=== PATIENT | male | born 1970 | race Caucasian/White ===

== ENCOUNTER → 2016-06-02 | Outpatient (CLI) | payer BC ==
[~2016-06-02] MED LIST: CEPH500C2 PO; CHOL100010 PO; LAMO100T16 PO; LITH1TAB10 PO; QUET1TAB34 PO; TYL325X PO
[2016-06-02 12:08] LABS: BASO % 0.2 %; BASO ABS # 0.03 K/uL (0-0.2); COMPLETE YES; EOS % 0.5 %; HEMATOCRIT 41.4 % (42-52); IG% 0.3 %; LYMPH % 13.5 %; LYMPH ABS # 1.91 K/uL (1.2-3.4); MEAN CELL VOLUME 85.2 fL (80-100); MEAN CORPUSCULAR HEMOGLOBIN 29.8 pg (25-34); MEAN PLATELET VOLUME 10.2 fL (7.4-10.4); MONO % 4.1 %; NEUT % 81.4 %; PLATELET COUNT 282 K/uL (130-400); RED BLOOD COUNT 4.86 M/uL (4.7-6.1); WHITE BLOOD COUNT 14.18 K/uL (4.8-10.8)
[2016-06-02 12:34] LABS: ALB/GLOB RATIO 1.4 (0.9-2); ALKALINE PHOSPHATASE 90 U/L (45-117); ALT/SGPT 35 U/L (12-78); AST/SGOT 14 U/L (15-37); BLOOD UREA NITROGEN 11 mg/dl (7-18); BUN/CREATININE RATIO 9.4 (10-20); CALCIUM 10.3 mg/dl (8.5-10.1); CARBON DIOXIDE 23 mmol/L (21-32); CHLORIDE 107 mmol/L (98-107); GLUCOSE 96 mg/dl (70-99); POTASSIUM 4.4 mmol/L (3.5-5.1); SODIUM 140 mmol/L (136-145)
[2016-06-02 13:53] LABS: LYME DISEASE AB IGM NEG (NEG)
[2016-06-02 13:55] LABS: LYME DISEASE AB IGG NEG (NEG)
== END | disposition home or self-care (01) ==
LOC: C.LAB1850 10:50
PROVIDERS: ATTEND Nurse Practitioner
DX: M25.561 Pain in right knee (principal); M25.461 Effusion, right knee; R50.9 Fever, unspecified

== ENCOUNTER → 2016-06-05 | Outpatient (CLI) | payer BC, OTHER ==
[~2016-06-05] MED LIST changes: +GADAVIST IV PRN
--- NOTE | 2016-06-05 11:40 | DIAGNOSTIC IMAGING REPORT ---
MRI right knee RIGHT LOWER EXTREMITY JOINT COM CLINICAL HISTORY: R KNEE PAIN AND SWELLING; FEVER; KNEE INSTABILITY Right pain TECHNIQUE: MRI multi axial acquisition COMPARISON STUDY: None FINDINGS: Signal characteristics the osseous structures are unremarkable throughout. There are findings of infrapatellar tendinopathy primarily anterior to the level of the tibial tubercles. There is associated reactive edematous change of the infrapatellar fat-pad.. Signal characteristics of all remaining osseous structures are unremarkable. Cruciate ligaments are intact. Collateral ligament are intact. Medial and lateral patellar retinaculum is intact. Slight truncation mid medial meniscal apex. Lateral meniscus is unremarkable. IMPRESSION: 1. Infrapatellar tendon tendinopathy 2. Reactive edematous change of the infrapatellar fat pad. 3. All remaining ligamentous and tendinous structures are intact. 4. Minimal apical truncation central medial meniscus. Electronically signed by: Jeremias Newton M.D. 06/05/2016 11:38 AM Dictated Date/Time: 06/05/2016 11:11 AM
== END | disposition home or self-care (01) ==
LOC: C.MRI 09:23
PROVIDERS: ATTEND Nurse Practitioner
DX: M25.561 Pain in right knee (principal); R60.0 Localized edema; R50.9 Fever, unspecified; M25.361 Other instability, right knee; M76.51 Patellar tendinitis, right knee

== ENCOUNTER → 2016-06-21 | Outpatient (CLI) | payer BC, OTHER ==
[~2016-06-21] MED LIST changes: -GADAVIST IV PRN
[2016-06-21 11:21] LABS: BLOOD UREA NITROGEN 11 mg/dl (7-18); BUN/CREATININE RATIO 11.2 (10-20); CALCIUM 9.6 mg/dl (8.5-10.1); CARBON DIOXIDE 27 mmol/L (21-32); CHLORIDE 107 mmol/L (98-107); CHOLESTEROL 224 mg/dl (0-200); GLUCOSE 92 mg/dl (70-99); GLUCOSE,FASTING 92 mg/dl (70-99); POTASSIUM 4.1 mmol/L (3.5-5.1); SODIUM 142 mmol/L (136-145)
[2016-06-21 11:31] LABS: CHOLESTEROL/HDL RATIO 7.7; HDL CHOLESTEROL 29 mg/dl; TRIGLYCERIDES 489 mg/dl (0-150)
== END ==
LOC: C.LAB 10:21
PROVIDERS: ATTEND Psychiatry & Neurology Psychiatry
DX: F31.81 Bipolar II disorder (principal)

== ENCOUNTER → 2017-01-23 | Outpatient (CLI) | payer BC, OTHER ==
[2017-01-23 10:43] LABS: BASO ABS # 0.07 K/uL (0-0.2); COMPLETE YES; EOS % 3.6 %; HEMATOCRIT 42.1 % (42-52); IG% 0.3 %; LYMPH % 29.9 %; MEAN CELL VOLUME 85.2 fL (80-100); MEAN CORPUSCULAR HEMOGLOBIN 29.8 pg (25-34); MEAN CORPUSCULAR HGB CONC 34.9 g/dl (32-36); MEAN PLATELET VOLUME 9.4 fL (7.4-10.4); MONO % 5.8 %; NEUT % 59.4 %; PLATELET COUNT 246 K/uL (130-400); RED BLOOD COUNT 4.94 M/uL (4.7-6.1); WHITE BLOOD COUNT 6.69 K/uL (4.8-10.8)
[2017-01-23 12:33] LABS: ALB/GLOB RATIO 1.3 (0.9-2); ALKALINE PHOSPHATASE 95 U/L (45-117); ALT/SGPT 34 U/L (12-78); AST/SGOT 14 U/L (15-37); BLOOD UREA NITROGEN 15 mg/dl (7-18); BUN/CREATININE RATIO 13.8 (10-20); CALCIUM 9.6 mg/dl (8.5-10.1); CARBON DIOXIDE 24 mmol/L (21-32); CHLORIDE 109 mmol/L (98-107); GLUCOSE 95 mg/dl (70-99); POTASSIUM 4.3 mmol/L (3.5-5.1); SODIUM 141 mmol/L (136-145)
[2017-01-23 12:44] LABS: CHOLESTEROL 192 mg/dl (0-200); CHOLESTEROL/HDL RATIO 6.9; HDL CHOLESTEROL 28 mg/dl; LDL CHOLESTEROL CALCULATED 96 mg/dl; TRIGLYCERIDES 341 mg/dl (0-150); VERY LOW DENSITY LIPOPROT CALC 68 mg/dl
== END | disposition home or self-care (01) ==
LOC: C.LAB1850 09:31
PROVIDERS: ATTEND Psychiatry & Neurology Psychiatry
DX: F31.9 Bipolar disorder, unspecified (principal)

== ENCOUNTER → 2017-03-13 | Outpatient (CLI) | payer BC, OTHER | END | disposition home or self-care (01) | LOC: C.LAB1850 08:00 | PROVIDERS: ATTEND Psychiatry & Neurology Psychiatry | DX: F31.9 Bipolar disorder, unspecified (principal) ==

== ENCOUNTER 2021-04-03 18:07 | Inpatient (IN) ==
--- NOTE | 2021-04-03 18:26 | Emergency Department Note ---
Impression & Plan Bipolar 1 disorder Admission ED Provider Note HPI: The patient is a 50-year-old male who presents the emergency department as a 302. Patient reportedly made a suicidal threat earlier today to his . Patient denies this. He states he has been very agitated all day because he just found out his is having an affair. His speech is somewhat pressured on arrival but he is cooperative. He seems slightly manic. Patient denies that he has threatened to kill himself, denies any suicidal or homicidal ideations. He is cooperative on arrival here to the ED. He denies any alcohol use, states he does smoke marijuana. ROS: -Psychiatric: Agitation, ifeanyi, history of bipolar disorder, presents as 302 *10 point review systems was conducted and is otherwise negative unless stated above *Outpatient medications and allergy history reviewed PE: General: Alert, NAD HEENT: Normocephalic, atraumatic, trachea midline Eyes: Extraocular eye movement is intact, no scleral erythema Pulmonary: Clear to auscultation bilaterally, no wheezing Cardio: Regular rate and rhythm GI: Abdomen is soft, nontender : No suprapubic tenderness MSK: No evidence of trauma or malformation of the extremities, no edema Skin: No evidence of rash Neuro: Alert, no focal deficits Psychiatric: Cooperative, pressured speech, not aggressive Medical Decision Making: Patient presented to the emergency department today as a 302 with reported suicidal threat to want to hang himself. He tells me has been very agitated all day because he found out that his was having an affair. He does seem somewhat agitated and mildly manic on arrival but he is cooperative on my ex amination. Denies any suicidal or homicidal thoughts. Patient was medically cleared, evaluated by the psychiatric manager case. At this time the patient states that he is seeking voluntary inpatient care and I do believe he would benefit from this given his agitation and ifeanyi in the setting of a recent social stressor. 302 will be held and the patient will sign a 201. Patient was in agreement to the above plan he was admitted in stable condition to 3 S. Diagnosis: 1. Bipolar disorder 2. Anxiety/depression 3. Agitation in the setting of a psychosocial stressor Disposition: Admit to psychiatry under 201 Jeremias Meyer, Emergency Medicine Past Med/Surg History Medical History HTN (hypertension) Strain of left patellar tendon Surgical History H/O vasectomy Social History Smoking Status: Never smoker Feels Safe at Home: Yes Allergies Allergies Allergy/AdvReac Type Severity Reaction Status Date / Time Penicillins Allergy Severe RASH Verified 10/31/20 11:52 Home Meds Home Medications Medication Instructions Recorded Confirmed CHOLECALCIFEROL (Vitamin D) 1,000 inter.unit PO HS #0 02/10/11 10/31/20 [place] Carbonate Ext Rel 1,200 mg PO HS #0 12/28/11 10/31/20 (Lithobid Ext Rel) [place] Carbonate Ext Rel 300 mg PO QAM #0 12/28/11 10/31/20 (Lithobid Ext Rel) Lamotrigine (Lamictal) 300 mg PO HS #0 tab 09/06/15 10/31/20 Quetiapine Fumarate (Seroquel) 200 mg PO HS #0 tab 11/26/15 10/31/20 Previous Rx's Medication Instructions Recorded Acetaminophen (Tylenol) 325 - 650 mg PO Q8H #30 11/27/15 Cephalexin Monohydrate (KEFLEX) 500 mg PO QID 7 Days #28 cap 11/27/15 Results & Data (ED) Vital Signs Vital Signs - 24 hr 04/03/21 18:23 04/03/21 18:27 Temperature 37.5 C Temperature Source Oral Pulse Rate 88 Pulse Rate [Left Radial] 88 Pulse Rhythm Regular Pulse Rhythm [Left Radial] Regular Pulse Strength Normal Pulse Strength [Left Radial] Normal Respiratory Rate 14 14 Respiratory Effort / Characteristics Non-Labored Respiratory Depth Normal Normal Respiratory Pattern Regular Blood Pressure 168/107 H Blood Pressure [Left Arm] 168/107 H Blood Pressure Mean 127 Blood Pressure Mean [Left Arm] 127 Blood Pressure Position Lying Blood Pressure Position [Left Arm] Lying Pulse Oximetry 98 98 Oxygen Delivery Method Room Air Room Air Sepsis Recent Fever Within 48 Hours No Sepsis New/Unexplained Change in Mental Status No Sepsis Action Taken by Nursing No Action Required Laboratory Data Result diagrams: 04/03/21 18:52 04/03/21 18:52 Lab Results 04/03/21 04/03/21 04/03/21 Range/Units 18:30 18:30 18:52 WBC 13.44 H (4.8-10.8) K/uL RBC 4.67 L (4.7-6.1) M/uL Hgb 14.5 (14.0-18.0) g/dL Hct 42.5 (42-52) % MCV 91.0 (80-100) fL MCH 31.0 (25-34) pg MCHC 34.1 (32-36) g/dL RDW Std Deviation 42.5 (36.4-46.3) fL RDW Coeff of Tavon 12.8 (11.5-14.5) % Plt Count 311 (130-400) K/uL MPV 9.0 (7.4-10.4) fL Immature Gran % (Auto) 0.1 % Neut % (Auto) 71.8 % Lymph % (Auto) 20.4 % [place] % (Auto) 5.7 % Eos % (Auto) 1.6 % Baso % (Auto) 0.4 % Neut # (Auto) 9.66 H (1.4-6.5) K/uL Lymph # (Auto) 2.74 (1.2-3.4) K/uL Liberty # (Auto) 0.76 H (0.11-0.59) K/uL Eos # (Auto) 0.21 (0-0.5) K/uL Baso # (Auto) 0.05 (0-0.2) K/uL Immature Gran # (Auto) 0.02 (0.00-0.02) K/uL Sodium (136-145) mmol/L Potassium (3.5-5.1) mmol/L Chloride (98-107) mmol/L Carbon Dioxide (21-32) mmol/L Anion Gap (3-11) BUN (7-18) mg/dl Creatinine (0.6-1.4) mg/dl Est Cr Clr Drug Dosing Est GFR ( Amer) ml/min Est GFR (Non-Af Amer) ml/min BUN/Creatinine Ratio (10-20) Glucose (70-99) mg/dl Calcium (8.5-10.1) mg/dl Total Bilirubin (0.2-1) mg/dl AST (15-37) U/L ALT (12-78) Alkaline Phosphatase (45-117) U/L Total Protein (6.4-8.2) gm/dl Albumin (3.4-5.0) gm/dl Globulin (2.5-4.0) gm/dl Albumin/Globulin Ratio (0.9-2) TSH (0.300-4.500) uIu/ml Urine Color Yellow Urine Appearance Clear (Clear) Urine pH 5.5 (4.5-7.5) Ur Specific [place] 1.008 (1.000-1.030) Urine Protein Negative (Negative) Urine Glucose (UA) Negative (Negative) Urine Ketones Negative (Negative) Urine Blood Negative (Negative) Urine Nitrite Negative (Negative) Urine Bilirubin Negative (Negative) Urine Urobilinogen Negative (Negative) Ur Leukocyte Esterase Trace H (Negative) Urine WBC (Auto) 1-5 (0-5) /hpf Urine RBC (Auto) 0-4 (0-4) /hpf U Hyaline Cast (Auto) 1-5 (0-5) /lpf U Epithel Cells (Auto) 0-5 (0-5) /lpf Urine Bacteria (Auto) Negative (Negative) Salicylates (2.8-20) mg/dl Urine Opiates Screen Neg (Neg) Ur Methadone, Qual Neg (Neg) Acetaminophen (10-30) ug/ml Urine Barbiturates Neg (Neg) Ur Phencyclidine (PCP) Neg (Neg) U Amphetamin/Meth Scrn Neg (Neg) MDMA (Ecstasy) Screen Pos H (Neg) U Benzodiazepines Scrn Neg (Neg) Ur Cocaine Metabolite Neg (Neg) U Marijuana (THC) Screen Neg (Neg) Ethyl Alcohol mg/dL (0-3) mg/dl 04/03/21 04/03/21 04/03/21 Range/Units 18:52 18:52 18:52 WBC (4.8-10.8) K/uL RBC (4.7-6.1) M/uL Hgb (14.0-18.0) g/dL Hct (42-52) % MCV (80-100) fL MCH (25-34) pg MCHC (32-36) g/dL RDW Std Deviation (36.4-46.3) fL RDW Coeff of Tavon (11.5-14.5) % Plt Count (130-400) K/uL MPV (7.4-10.4) fL Immature Gran % (Auto) % Neut % (Auto) % Lymph % (Auto) % Liberty % (Auto) % Eos % (Auto) % Baso % (Auto) % Neut # (Auto) (1.4-6.5) K/uL Lymph # (Auto) (1.2-3.4) K/uL Liberty # (Auto) (0.11-0.59) K/uL Eos # (Auto) (0-0.5) K/uL Baso # (Auto) (0-0.2) K/uL Immature Gran # (Auto) (0.00-0.02) K/uL Sodium 137 (136-145) mmol/L Potassium 3.6 (3.5-5.1) mmol/L Chloride 107 (98-107) mmol/L Carbon Dioxide 23 (21-32) mmol/L Anion Gap 7.0 (3-11) BUN 11 (7-18) mg/dl Creatinine 1.04 (0.6-1.4) mg/dl Est Cr Clr Drug Dosing Not Reportable Est GFR ( Amer) 96.6 ml/min Est GFR (Non-Af Amer) 83.3 ml/min BUN/Creatinine Ratio 10.8 (10-20) Glucose 90 (70-99) mg/dl Calcium 9.8 (8.5-10.1) mg/dl Total Bilirubin 0.7 (0.2-1) mg/dl AST 16 (15-37) U/L ALT 28 (12-78) Alkaline Phosphatase 67 (45-117) U/L Total Protein 7.6 (6.4-8.2) gm/dl Albumin 4.1 (3.4-5.0) gm/dl Globulin 3.5 (2.5-4.0) gm/dl Albumin/Globulin Ratio 1.2 (0.9-2) TSH 3.330 (0.300-4.500) uIu/ml Urine Color Urine Appearance (Clear) Urine pH (4.5-7.5) Ur Specific [place] (1.000-1.030) Urine Protein (Negative) Urine Glucose (UA) (Negative) Urine Ketones (Negative) Urine Blood (Negative) Urine Nitrite (Negative) Urine Bilirubin (Negative) Urine Urobilinogen (Negative) Ur Leukocyte Esterase (Negative) Urine WBC (Auto) (0-5) /hpf Urine RBC (Auto) (0-4) /hpf U Hyaline Cast (Auto) (0-5) /lpf U Epithel Cells (Auto) (0-5) /lpf Urine Bacteria (Auto) (Negative) Salicylates 2.5 L (2.8-20) mg/dl Urine Opiates Screen (Neg) Ur Methadone, Qual (Neg) Acetaminophen 4 L (10-30) ug/ml Urine Barbiturates (Neg) Ur Phencyclidine (PCP) (Neg) U Amphetamin/Meth Scrn (Neg) MDMA (Ecstasy) Screen (Neg) U Benzodiazepines Scrn (Neg) Ur Cocaine Metabolite (Neg) U Marijuana (THC) Screen (Neg) Ethyl Alcohol mg/dL < 3.0 (0-3) mg/dl Discharge Plan Visit Data Chief Complaint: Mental Health Evaluation ED Provider: Jeremias Meyer Discharge Problem: Bipolar 1 disorder Forms Stand Alone Forms: [facility], Suicide Prevention Resources Prescriptions Prescriptions: No Action CHOLECALCIFEROL (Vitamin D) 1,000 INTER.UNIT tablet 1,000 inter.unit PO HS Qty: 0 RF: 0 [place] Carbonate Ext Rel (Lithobid Ext Rel) 300 MG [id number] 1,200 mg PO HS Qty: 0 RF: 0 [place] Carbonate Ext Rel (Lithobid Ext Rel) 300 MG [id number] 300 mg PO QAM Qty: 0 RF: 0 Lamotrigine (Lamictal) 100 MG tablet 300 mg PO HS Qty: 0 RF: 0 Quetiapine Fumarate (Seroquel) 100 MG tablet 200 mg PO HS Qty: 0 RF: 0 Cephalexin Monohydrate (KEFLEX) 500 MG capsule 500 mg PO QID 7 Days Qty: 28 RF: 1 Acetaminophen (Tylenol) 325 MG tablet 325 - 650 mg PO Q8H Qty: 30 RF: 0 Referrals Referrals: Fernando Deal DO [Primary Care Provider] -
[2021-04-03 19:05] LABS: Amphetamines+Metham, Urine Neg (Neg); Barbiturates, Urine Neg (Neg); Benzodiazepine, Urine Neg (Neg); Cocaine, Urine Neg (Neg); MDMA (Ecstacy), Urine Pos (Neg); Methadone, Urine Neg (Neg); Opiate, Urine Neg (Neg); Phencyclidine, Urine Neg (Neg)
[2021-04-03 19:07] LABS: Basophils # (auto) 0.05 K/uL (0-0.2); Basophils % (auto) 0.4 %; Eosinophils # (auto) 0.21 K/uL (0-0.5); Eosinophils % (auto) 1.6 %; Hematocrit (blood only) 42.5 % (42-52); Hemoglobin 14.5 g/dL (14.0-18.0); Immature Granulocytes # (auto) 0.02 K/uL (0.00-0.02); Immature Granulocytes % (auto) 0.1 %; Lymphocytes # (auto) 2.74 K/uL (1.2-3.4); Lymphocytes % (auto) 20.4 %; Mean Corpuscular Hgb Conc 34.1 g/dL (32-36); Monocytes # (auto) 0.76 K/uL (0.11-0.59); Monocytes % (auto) 5.7 %; Neutrophils # (auto) 9.66 K/uL (1.4-6.5); Neutrophils % (auto) 71.8 %; Platelet Count 311 K/uL (130-400); RDW Coefficient of Variation 12.8 % (11.5-14.5); RDW Standard Deviation 42.5 fL (36.4-46.3); Red Blood Count 4.67 M/uL (4.7-6.1); White Blood Count 13.44 K/uL (4.8-10.8)
[2021-04-03 19:25] LABS: Albumin Level 4.1 gm/dl (3.4-5.0); BUN Creatinine Ratio 10.8 (10-20); Blood Urea Nitrogen 11 mg/dl (7-18); Calcium 9.8 mg/dl (8.5-10.1); Carbon Dioxide 23 mmol/L (21-32); Chloride 107 mmol/L (98-107); Est GFR (African American) 96.6 ml/min; Est GFR (Non-African American) 83.3 ml/min; Glucose 90 mg/dl (70-99); Potassium 3.6 mmol/L (3.5-5.1); Salicylate 2.5 mg/dl (2.8-20); Sodium 137 mmol/L (136-145)
[2021-04-03 19:35] LABS: Alanine Aminotransferase 28 (12-78); Albumin Globulin Ratio 1.2 (0.9-2); Alkaline Phosphatase 67 U/L (45-117); Aspartate Aminotransferase 16 U/L (15-37); Bilirubin,Total 0.7 mg/dl (0.2-1); Globulin 3.5 gm/dl (2.5-4.0); Total Protein 7.6 gm/dl (6.4-8.2)
[2021-04-03 19:44] LABS: Appearance Urine Clear (Clear); Bacteria Urine Automated Negative (Negative); Bilirubin Urine Negative (Negative); Blood Urine Negative (Negative); Color Urine Yellow; Epithelial Cell Urine Auto 0-5 /lpf (0-5); Glucose Urine UA Negative (Negative); Ketones Urine Negative (Negative); Leukocyte Esterase Urine Trace (Negative); Nitrite Urine Negative (Negative); Protein Urine Negative (Negative); RBC Urine Automated 0-4 /hpf (0-4); Specific Gravity Urine 1.008 (1.000-1.030); Urobilinogen Urine Negative (Negative); pH Urine 5.5 (4.5-7.5)
--- NOTE | 2021-04-04 00:06 | Emergency Department Note ---
ED Visit Note ED Physician Sign Out Note: 50 yr old male with history of bipolar who arrives following finding out his is cheating on him. Wishing hospitalization for anxiety/depression with ifeanyi. Medically cleared by Dr Meyer who signed patient out to me pending placement Patient was shortly thereafter accepted to [facility]. for further manage ment. Santo Aguilar MD
[2021-04-04] MEDS ORDERED: ACETAMINOPHEN 325 MG TAB PO PRN (00:40)
[2021-04-04] MEDS ORDERED: MAGNESIUM HYDROXIDE SUSP 30 ML UDC PO PRN (00:40)
[2021-04-04] MEDS ORDERED: SODIUM CHLORIDE 0.65% NA SOLN 45 ML (OCEAN) PRN (00:40)
[2021-04-04] MEDS ORDERED: ALUMINUM/MAGNESIUM SUSP 30 ML UDC PO PRN (00:40)
[2021-04-04] MEDS ORDERED: BISMUTH SUBSALICYLATE LIQD 236 ML PO PRN (00:40)
[2021-04-04] MEDS: hydrOXYzine HCl 25 MG TAB PO PRN (00:56)
[2021-04-04] MEDS: buPROPion SR 100 MG TABCR PO SCH (10:39)
[2021-04-04] MEDS: LITHIUM CARBONATE SLOW REL 300 MG TAB PO SCH ×2 (10:39→20:35)
[2021-04-04] MEDS: lamoTRIgine 25 MG TAB PO SCH (10:39)
[2021-04-04] MEDS: lisinopril 10 MG TAB PO SCH (10:39)
--- NOTE | 2021-04-04 13:01 | History & Physical ---
Date of Service April 04, 2021 Impression / Recommendations Impression 50 yo male presenting for 3rd inpatient hospitalization irritably depressed with beliefs that is cheating s/p suicide attempt by hanging 3 weeks ago with ongoing mixed picture and poor sleep. He is at significant risk of suicide, particularly as home alone and off work over the holiday and was admitted to on a voluntary basis for safety. (1) Bipolar 1 disorder: The patient was admitted to the [facility]) on q15 min checks (behavioral with suicide precautions) for safety. The patient will participate in group, recreational, and milieu therapies and will be offered additional individual and family sessions as clinically appropriate. Risks/benefits/alternatives were reviewed re: antipsychotics for mood and/or psychosis. Discussion included but was not limited to metabolic side effects, risks of TD and suicidal thoughts. There were no abnormal motor movements at baseline. Fasting glucose and lipid panel were reviewed from earlier this month. Patient is also aware of risk of rash with Lamictal. He denies being on a higher dose of Wellbutrin but will focus on targetting irritability and paranoia first with increase in Zyprexa to 10 mg as planned by outpatient psychiatrist. Will hold on lithium level as he missed at least 1 dose. Pharmacy expressed concerns about lisinopril increasing risk of lithium toxicity. He has no evidence of toxicity on exam. Ordering Lithobid here so gets tabs and not caps. Risk Factors Assessment Do You Have Access To A Gun?: No Protective Factors Assessment Employed: Yes ([employer]) Psychiatric History Identifying Data RAJ ZUÑIGA is a 50-year-old M who currently lives in [place], has a history of 2 prior inpatient hospitalizations at [facility], and was admitted on 04/04/21 00:03 on a 201 voluntary commitment for recent suicide attempt and ongoing irritability. He was initially brought to the ED by police on a 302 warrant. Chief Complaint "I haven't been sleeping and I know she's messing around on me", referring to his 's cheating History of Present Illness The patient reports marital distress for the past few months, culminated in him attempting suicide by hanging 3 weeks ago. There have been mixed reports whether this was a gesture of upset for 's cheating vs. intent to . It was significant enough attempt that he became light headed and aborted the attempt. He did process with his psychiatrist and was referred to start therapy. He is unsure of recent medication changes other than Zyprexa was increased at yesterday's appointment to 10 mg and he hadn't picked that up at the pharmacy yet. He is currently on holiday break from his work at [employer] and states that his and child are visiting her family out of state. He was triggered yesterday as she reportedly asked him not to come for Carlene and encouraged hospitalization "because she's messing around" (angry tone). He states that he hasn't been eating or sleeping well. He denies that he was suicidal yesterday, "I'm more angry than anything" and states that he was agreeable to come as his psychiatrist recommended it. The patient denies increased goal directed activity, distractibility but endorses irritability. It's unclear how impulsive the prior attempt was. Dr. Mendez was contacted for coordination of care and to confirm medications and states that patient has been more irritable with paranoia, more of a manic or mixed presentation and all are concerned about his safety given recent attempt. Past Psychiatric History Current Psychiatric Diagnosis: bipolar 1 disorder Outpatient Services: [facility], also recently started therapy (individual and couples) with [facility]. Previous Psych Admissions: [facility] 2011 and 2007. Do You Have Access To A Gun?: No Describe Attempts in the Past: attempted to hang self 3 weeks ago - stopped short of losing conscious Past Medication Trials: has been on lithium and lamictal for some time, Zyprexa recently added to Abilify. Allergies Allergy/AdvReac Type Severity Reaction Status Date / Time Penicillins Allergy Severe RASH Verified 10/31/20 11:52 Home Medications Medication Instructions Recorded Confirmed Type aripiprazole 5 mg tablet 5 mg PO DAILY 04/04/21 04/04/21 History bupropion HCl 100 mg tablet,12 hr 100 mg PO DAILY 04/04/21 04/04/21 History sustained-release clonazepam 0.5 mg tablet 0.5 mg PO BID 04/04/21 04/04/21 History ergocalciferol (vitamin D2) 1,250 50,000 unit PO WK 04/04/21 04/04/21 History mcg (50,000 unit) capsule lamotrigine 25 mg tablet 25 mg PO DAILY 04/04/21 04/04/21 History lamotrigine 25 mg tablet 100 mg PO HS 04/04/21 04/04/21 History lisinopril 10 mg tablet 10 mg PO DAILY 04/04/21 04/04/21 History lithium carbonate 300 mg tablet 300 mg PO DAILY 04/04/21 04/04/21 History lithium carbonate 300 mg tablet 600 mg PO HS 04/04/21 04/04/21 History olanzapine 10 mg tablet 10 mg PO DAILY 04/04/21 04/04/21 History Family History Family History of: None Alcohol History Hx of Alcohol Use Over the Past 12 Months: No AUDIT Total Score: 2 Smoking Use Have You Smoked or Used Tobacco Products in the Last 30 Days: Yes tobacco type: cigarettes Smoking Status: Current every day smoker Smoking packs per day: 0.5 Substance History Hx of Prescription Med Misuse Over the Past 12 Months: No Hx of Over the Counter Med Misuse Over the Past 12 Months: No Hx of Inhalent Misuse Over the Past 12 Months: No Hx of Organic Substance Use Over the Past 12 Months: No Hx of Illegal Substances/Street Drug Use Over Past 12 Months: No Problems as a Result of Past Substance Use: None Identified Personal History Living Arrangements: Home Highest Grade Completed: College 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[employer], 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) Marital Status: (2nd marriage, have been a couple for 14 years, for 10 years) Number Of Children: 3 (21 yo, 16 yo, and 7 yo) Beliefs That Will Affect Care: None Current Legal Problems: No Hx Traumatic Life Events: No Patient History Medical History HTN (hypertension) Strain of left patellar tendon Surgical History H/O vasectomy Social History Smoking Status: Current every day smoker Preferred Language: Romansh Communication Ability: Effective Scale Reclamation Tender Required: No Beliefs That Will Affect Care: None Feels Safe at Home: Yes Assistive Devices: Glasses Review of Systems Review of Systems: All systems reviewed & are unremarkable except as noted in HPI & below Physical Exam Psychiatric: Orientation: alert and oriented x 3 Apperance: appropriately dressed and appropriately groomed Eye Contact: good eye contact Motor Behavior: no abnormal motor movements Speech: normal rate/rhythm/volume of speech Affect: + depressed affect Mood: + depressed mood and + irritable mood Thought Process: goal directed thought process Suicidal Thoughts: denies suicidal thoughts Homicidal Thoughts: denies homicidal thoughts Hallucinations: no auditory hallucinations and no visual hallucinations Cognition: attention grossly intact and language grossly intact Estimated Intelligence: consistent with education level Insight: + limited insight Judgement: + limited judgement Vital Signs (Past 24 Hours): Last Vital Signs Temp 37.5 C 04/04/21 00:58 Pulse 60 04/04/21 00:58 Resp 16 04/04/21 00:58 BP 133/74 04/04/21 00:58 Pulse Ox 98 04/04/21 00:58 Exam Statement: A physical exam was performed in the ED by Dr. Meyer for the purposes of medical clearance. I accept that physical as correct and adequate for the purposes of the inpatient physical exam. Results & Data ([facility]) Laboratory Results Laboratory Results - last 24 hr 04/03/21 04/03/21 04/03/21 18:30 18:30 18:30 WBC RBC Hgb Hct MCV MCH MCHC RDW Std Deviation RDW Coeff of [place] Plt Count MPV Immature Gran % (Auto) Neut % (Auto) Lymph % (Auto) Dunn % (Auto) Eos % (Auto) Baso % (Auto) Neut # (Auto) Lymph # (Auto) Dunn # (Auto) Eos # (Auto) Baso # (Auto) Immature Gran # (Auto) Sodium Potassium Chloride Carbon Dioxide Anion Gap BUN Creatinine Est Cr Clr Drug Dosing Est GFR ( Amer) Est GFR (Non-Af Amer) BUN/Creatinine Ratio Glucose Calcium Total Bilirubin AST ALT Alkaline Phosphatase Total Protein Albumin Globulin Albumin/Globulin Ratio TSH Urine Color Yellow Urine Appearance Clear Urine pH 5.5 Ur Specific [place] 1.008 Urine Protein Negative Urine Glucose (UA) Negative Urine Ketones Negative Urine Blood Negative Urine Nitrite Negative Urine Bilirubin Negative Urine Urobilinogen Negative Ur Leukocyte Esterase Trace H Urine WBC (Auto) 1-5 Urine RBC (Auto) 0-4 U Hyaline Cast (Auto) 1-5 U Epithel Cells (Auto) 0-5 Urine Bacteria (Auto) Negative Salicylates Urine Opiates Screen Neg Ur Methadone, Qual Neg Acetaminophen Urine Barbiturates Neg Ur Phencyclidine (PCP) Neg U Amphetamin/Meth Scrn Neg Urine MDEA Pending MDMA (Ecstasy) Screen Pos H MDMA Pending Urine MDMA Pending U Benzodiazepines Scrn Neg Ur Cocaine Metabolite Neg U Marijuana (THC) Screen Neg Ethyl Alcohol mg/dL SARS-CoV-2, RNA, NAAT 04/03/21 04/03/21 04/03/21 18:52 18:52 18:52 WBC 13.44 H RBC 4.67 L Hgb 14.5 Hct 42.5 MCV 91.0 MCH 31.0 MCHC 34.1 RDW Std Deviation 42.5 RDW Coeff of [place]av[place] 12.8 Plt Count 311 MPV 9.0 Immature Gran % (Auto) 0.1 Neut % (Auto) 71.8 Lymph % (Auto) 20.4 Dunn % (Auto) 5.7 Eos % (Auto) 1.6 Baso % (Auto) 0.4 Neut # (Auto) 9.66 H Lymph # (Auto) 2.74 Dunn # (Auto) 0.76 H Eos # (Auto) 0.21 Baso # (Auto) 0.05 Immature Gran # (Auto) 0.02 Sodium 137 Potassium 3.6 Chloride 107 Carbon Dioxide 23 Anion Gap 7.0 BUN 11 Creatinine 1.04 Est Cr Clr Drug Dosing Not Reportable Est GFR ( Amer) 96.6 Est GFR (Non-Af Amer) 83.3 BUN/Creatinine Ratio 10.8 Glucose 90 Calcium 9.8 Total Bilirubin 0.7 AST 16 ALT 28 Alkaline Phosphatase 67 Total Protein 7.6 Albumin 4.1 Globulin 3.5 Albumin/Globulin Ratio 1.2 TSH 3.330 Urine Color Urine Appearance Urine pH Ur Specific [place] Urine Protein Urine Glucose (UA) Urine Ketones Urine Blood Urine Nitrite Urine Bilirubin Urine Urobilinogen Ur Leukocyte Esterase Urine WBC (Auto) Urine RBC (Auto) U Hyaline Cast (Auto) U Epithel Cells (Auto) Urine Bacteria (Auto) Salicylates 2.5 L Urine Opiates Screen Ur Methadone, Qual Acetaminophen 4 L Urine Barbiturates Ur Phencyclidine (PCP) U Amphetamin/Meth Scrn Urine MDEA MDMA (Ecstasy) Screen MDMA Urine MDMA U Benzodiazepines Scrn Ur Cocaine Metabolite U Marijuana (THC) Screen Ethyl Alcohol mg/dL SARS-CoV-2, RNA, NAAT 04/03/21 04/03/21 18:52 22:15 WBC RBC Hgb Hct MCV MCH MCHC RDW Std Deviation RDW Coeff of [place] Plt Count MPV Immature Gran % (Auto) Neut % (Auto) Lymph % (Auto) Dunn % (Auto) Eos % (Auto) Baso % (Auto) Neut # (Auto) Lymph # (Auto) Dunn # (Auto) Eos # (Auto) Baso # (Auto) Immature Gran # (Auto) Sodium Potassium Chloride Carbon Dioxide Anion Gap BUN Creatinine Est Cr Clr Drug Dosing Est GFR ( Amer) Est GFR (Non-Af Amer) BUN/Creatinine Ratio Glucose Calcium Total Bilirubin AST ALT Alkaline Phosphatase Total Protein Albumin Globulin Albumin/Globulin Ratio TSH Urine Color Urine Appearance Urine pH Ur Specific [place] Urine Protein Urine Glucose (UA) Urine Ketones Urine Blood Urine Nitrite Urine Bilirubin Urine Urobilinogen Ur Leukocyte Esterase Urine WBC (Auto) Urine RBC (Auto) U Hyaline Cast (Auto) U Epithel Cells (Auto) Urine Bacteria (Auto) Salicylates Urine Opiates Screen Ur Methadone, Qual Acetaminophen Urine Barbiturates Ur Phencyclidine (PCP) U Amphetamin/Meth Scrn Urine MDEA MDMA (Ecstasy) Screen MDMA Urine MDMA U Benzodiazepines Scrn Ur Cocaine Metabolite U Marijuana (THC) Screen Ethyl Alcohol mg/dL < 3.0 SARS-CoV-2, RNA, NAAT NEGATIVE Current Inpatient Medications Current Inpatient Medications: Current Inpatient Medications Acetaminophen (Acetaminophen 325 Mg Tab) 650 mg PO Q4H PRN PRN Reason: Headache or Minor Fever Stop: 05/04/21 00:39 Al Hydrox/Mg Hydrox/Simethicone (Aluminum/Magnesium Susp 30 Ml Udc) 30 ml PO Q4H PRN PRN Reason: GI Upset Stop: 05/04/21 00:39 Bismuth Subsalicylate (Bismuth Subsalicylate Liqd 236 Ml) 15 ml PO PRN PRN PRN Reason: Loose Stool Stop: 05/04/21 00:39 Bupropion HCl (Bupropion Sr 100 Mg Tabcr) 100 mg PO DAILY ON LICENSE OF [facility] Stop: 05/04/21 09:59 Last Admin: 04/04/21 10:39 Dose: 100 mg Documented by: Clonazepam (Clonazepam 0.5 Mg Tab) 0.5 mg PO [id number] JONO Stop: 05/04/21 13:59 Hydroxyzine HCl (Hydroxyzine Hcl 25 Mg Tab) 50 mg PO HSZ PRN PRN Reason: Insomnia Stop: 05/04/21 00:39 Last Admin: 04/04/21 00:56 Dose: 50 mg Documented by: Hydroxyzine HCl (Hydroxyzine Hcl 25 Mg Tab) 25 mg PO Q4H PRN PRN Reason: Anxiety Stop: 05/04/21 00:39 Lamotrigine (Lamotrigine 25 Mg Tab) 25 mg PO DAILY ON LICENSE OF [facility] Stop: 05/04/21 09:59 Last Admin: 04/04/21 10:39 Dose: 25 mg Documented by: Lisinopril (Lisinopril 10 Mg Tab) 10 mg PO DAILY ON LICENSE OF [facility] Stop: 05/04/21 09:59 Last Admin: 04/04/21 10:39 Dose: 10 mg Documented by: [place] Carbonate ([place] Carbonate Slow Rel 300 Mg Tab) 600 mg PO HS ON LICENSE OF [facility] Stop: 05/04/21 21:59 [place] Carbonate ([place] Carbonate Slow Rel 300 Mg Tab) 300 mg PO QAM ON LICENSE OF [facility] Stop: 05/04/21 09:59 Last Admin: 04/04/21 10:39 Dose: 300 mg Documented by: Magnesium Hydroxide (Magnesium Hydroxide Susp 30 Ml Udc) 30 ml PO DAILY PRN PRN Reason: Constipation Stop: 05/04/21 00:39 Olanzapine (Olanzapine 10 Mg Tab) 10 mg PO HS ON LICENSE OF [facility] Stop: 05/04/21 21:59 Sodium Chloride (Sodium Chloride 0.65% Na Soln 45 Ml ([place])) 1 - 2 sprays NA PRN PRN PRN Reason: Nasal Dryness/Congestion Stop: 05/04/21 00:39
[2021-04-04] MEDS: clonazePAM 0.5 MG TAB PO SCH (13:16)
[2021-04-04] MEDS: ARIPiprazole 5 MG TAB PO SCH (14:23)
[2021-04-04] MEDS: lamoTRIgine 100 MG TAB PO SCH (20:35)
[2021-04-04] MEDS: OLANZapine 10 MG TAB PO SCH (20:36)
[2021-04-05] MEDS: clonazePAM 0.5 MG TAB PO SCH ×2 (06:34→13:53)
[2021-04-05] MEDS: buPROPion SR 100 MG TABCR PO SCH (08:45)
[2021-04-05] MEDS: lamoTRIgine 25 MG TAB PO SCH (08:45)
[2021-04-05] MEDS: lisinopril 10 MG TAB PO SCH (08:45)
[2021-04-05] MEDS: ARIPiprazole 5 MG TAB PO SCH (08:45)
[2021-04-05] MEDS: LITHIUM CARBONATE SLOW REL 300 MG TAB PO SCH ×2 (08:46→21:41)
[2021-04-05] MEDS ORDERED: LITHIUM CARBONATE SLOW REL 300 MG TAB PO SCH (09:00)
--- NOTE | 2021-04-05 13:45 | Psychiatric Progress Note ---
Date of Service April 05, 2021 Impression / Recommendations Impression 50 yo man with a history of BPAD, a recent suicide attempt via hanging and two prior inpatient psychiatric hospitalizations (last in 2011) who was admitted on 201 status for mood changes including irritability and recent suicide attempt in the context of multiple psychosocial stressors including with his marriage. He expressed concerns about his cheating which may represent some paranoia versus reality-based and contributing to current stress of marriage. Diagnostically consistent with mixed episode of BPAD with decreased sleep and irritability and impulsivity but also with depression, recent suicide attempt and ongoing fatigue and constricted affect with anxiety. In effort to reduce polypharmacy with increase of olanzapine, elevated cholesterol and TGs and no subjective benefit will begin taper of discontinuation of abilify. Will also consolidate dose of lamictal as he notes there was no side effects or other reasons for split dosing and he would like to minimize his medications as much as possible. Continue with lithium and will get a level tomorrow morning as he is on split dosing with higher dose at qHS. Continue low dose Wellbutrin for now. (1) Bipolar 1 disorder: 04/05/21: -Continue wellbutrin SR 100mg qd -continue [place] 300mg qAM & 600mg qhs with level tomorrow morning -continue clonazepam 0.5 mg BID for mixed episode -consolidate lamictal 125 mg qhs, decrease abilify 2.5 mg qAM - continue olanzapine 10 mg qhs 04/04/21: The patient was admitted to the [facility] ([facility] health unit) on q15 min checks (behavioral with suicide precautions) for safety. The patient will participate in group, recreational, and milieu therapies and will be offered additional individual and family sessions as clinically appropriate. Risks/benefits/alternatives were reviewed re: antipsychotics for mood and/or psychosis. Discussion included but was not limited to metabolic side effects, risks of TD and suicidal thoughts. There were no abnormal motor movements at baseline. Fasting glucose and lipid panel were reviewed from earlier this month. Patient is also aware of risk of rash with Lamictal. He denies being on a higher dose of Wellbutrin but will focus on targetting irritability and paranoia first with increase in Zyprexa to 10 mg as planned by outpatient psychiatrist. Will hold on lithium level as he missed at least 1 dose. Pharmacy expressed concerns about lisinopril increasing risk of lithium toxicity. He has no evidence of toxicity on exam. Ordering Lithobid here so gets tabs and not caps. Risk Factors Assessment Do You Have Access To A Gun?: No Protective Factors Assessment Employed: Yes ([employer]) Interval History Identifying Information 50 yo man with a history of BPAD, a recent suicide attempt via hanging and two prior inpatient psychiatric hospitalizations (last in 2011) who was admitted on 201 status for mood changes including irritability and recent suicide attempt in the context of multiple psychosocial stressors including with his marriage. Chief Complaint "Today is a bit better than yesterday, but I struggle to feel anything". Review of Systems Sleep Information Total Hours of Sleep: 5 Sleep Comments: pt on q-15 minute checks Meal Information Percent Meal Consumed - Breakfast: 100 Percent Meal Consumed - Lunch: 0 Percent Meal Consumed - Dinner: 100 Subjective Subjective Patient was seen & assessed and interval progress reviewed with treatment team nursing and social work. Art notes that he did well with the increased olanzapine with no sedation or drowsiness this morning noting improvement in energy today compared with previous days though endorsed ongoing significant fatigue. Woke up at 5am and felt energized and read, showered, etc. Endorses feeling "flat" which he attributes to his medications and feeling that his inability to show emotions is negatively impacting his marriage. No other current medication side effects though he notes he's been on his medications for years so it's hard for him to know what's causing what. Physical Exam Psychiatric Orientation: alert and oriented x 3 Apperance: appropriately dressed and appropriately groomed Eye Contact: good eye contact Motor Behavior: steady gait and station and no abnormal motor movements; no psychomotor agitation Speech: normal rate/rhythm/volume of speech Affect: + constricted affect Mood: + depressed mood and + anxious mood Thought Process: linear/logical thought process Thought Content: reality based without delusions Suicidal Thoughts: denies suicidal thoughts Homicidal Thoughts: denies homicidal thoughts Hallucinations: no auditory hallucinations and no visual hallucinations Cognition: recent memory grossly intact, remote memory grossly intact, attention grossly intact and language grossly intact Insight: + fair insight Judgement: + fair judgement Vital Signs (Past 24 Hours) Last Vital Signs Temp 36.5 C 04/05/21 06:36 Pulse 77 04/05/21 06:37 Resp 18 04/05/21 06:36 BP 131/78 04/05/21 06:37 Pulse Ox 98 04/04/21 00:58 Results & Data ([facility]) Current Inpatient Medications Current Inpatient Medications: Current Inpatient Medications Acetaminophen (Acetaminophen 325 Mg Tab) 650 mg PO Q4H PRN PRN Reason: Headache or Minor Fever Stop: 05/04/21 00:39 Al Hydrox/Mg Hydrox/Simethicone (Aluminum/Magnesium Susp 30 Ml Udc) 30 ml PO Q4H PRN PRN Reason: GI Upset Stop: 05/04/21 00:39 Aripiprazole (Aripiprazole 5 Mg Tab) 5 mg PO QAM JONO Stop: 05/04/21 13:59 Last Admin: 04/05/21 08:45 Dose: 5 mg Documented by: Bismuth Subsalicylate (Bismuth Subsalicylate Liqd 236 Ml) 15 ml PO PRN PRN PRN Reason: Loose Stool Stop: 05/04/21 00:39 Bupropion HCl (Bupropion Sr 100 Mg Tabcr) 100 mg PO DAILY JONO Stop: 05/04/21 09:59 Last Admin: 04/05/21 08:45 Dose: 100 mg Documented by: Clonazepam (Clonazepam 0.5 Mg Tab) 0.5 mg PO [id number] JONO Stop: 05/04/21 13:59 Last Admin: 04/05/21 06:34 Dose: 0.5 mg Documented by: Hydroxyzine HCl (Hydroxyzine Hcl 25 Mg Tab) 50 mg PO HSZ PRN PRN Reason: Insomnia Stop: 05/04/21 00:39 Last Admin: 04/04/21 00:56 Dose: 50 mg Documented by: Hydroxyzine HCl (Hydroxyzine Hcl 25 Mg Tab) 25 mg PO Q4H PRN PRN Reason: Anxiety Stop: 05/04/21 00:39 Lamotrigine (Lamotrigine 25 Mg Tab) 25 mg PO DAILY JONO Stop: 05/04/21 09:59 Last Admin: 04/05/21 08:45 Dose: 25 mg Documented by: Lamotrigine (Lamotrigine 100 Mg Tab) 100 mg PO HS JONO Stop: 05/04/21 21:59 Last Admin: 04/04/21 20:35 Dose: 100 mg Documented by: Lisinopril (Lisinopril 10 Mg Tab) 10 mg PO DAILY JONO Stop: 05/04/21 09:59 Last Admin: 04/05/21 08:45 Dose: 10 mg Documented by: [place] Carbonate ([place] Carbonate Slow Rel 300 Mg Tab) 600 mg PO HS JONO Stop: 05/04/21 21:59 Last Admin: 04/04/21 20:35 Dose: 600 mg Documented by: [place] Carbonate ([place] Carbonate Slow Rel 300 Mg Tab) 300 mg PO QAM JONO Stop: 05/04/21 09:59 Last Admin: 04/05/21 08:46 Dose: 300 mg Documented by: Magnesium Hydroxide (Magnesium Hydroxide Susp 30 Ml Udc) 30 ml PO DAILY PRN PRN Reason: Constipation Stop: 05/04/21 00:39 Olanzapine (Olanzapine 10 Mg Tab) 10 mg PO HS JONO Stop: 05/04/21 21:59 Last Admin: 04/04/21 20:36 Dose: 10 mg Documented by: Sodium Chloride (Sodium Chloride 0.65% Na Soln 45 Ml ([place])) 1 - 2 sprays NA PRN PRN PRN Reason: Nasal Dryness/Congestion Stop: 05/04/21 00:39 Mental Health & Subst Abuse Tx Psychiatrist Name of Psychiatrist: Eder Mendez Psychiatrist's Date of Appointment with Psychiatrist: 04/16/21 Time of Appointment with Psychiatrist: 7:00 AM Therapist Name of Therapist: Karissa Miller Therapist's Date of Therapist Appointment: 04/12/21 Time of Therapist Appointment: 6:00 PM Therapy Appointment Comment: virtual Bread Jockey Name of Bread Jockey: None Post Discharge Appointments Primary Care Physician Name Of Family Doctor: Dr. Fernando Deal Primary Care Provider Appointment Comment: Follow up as needed.
[2021-04-05] MEDS: lamoTRIgine 100 MG TAB PO SCH (21:41)
[2021-04-05] MEDS: OLANZapine 10 MG TAB PO SCH (21:41)
[2021-04-06] MEDS: clonazePAM 0.5 MG TAB PO SCH ×2 (06:43→14:09)
[2021-04-06] MEDS: ARIPiprazole 5 MG TAB PO SCH (09:16)
[2021-04-06] MEDS: buPROPion SR 100 MG TABCR PO SCH (09:18)
[2021-04-06] MEDS: lisinopril 10 MG TAB PO SCH (09:18)
[2021-04-06] MEDS: LITHIUM CARBONATE SLOW REL 300 MG TAB PO SCH ×2 (09:20→21:06)
--- NOTE | 2021-04-06 14:41 | Psychiatric Progress Note ---
Date of Service April 06, 2021 Impression / Recommendations Impression 50 yo man with a history of BPAD, a recent suicide attempt via hanging and two prior inpatient psychiatric hospitalizations (last in 2011) who was admitted on 201 status for mood changes including irritability and recent suicide attempt in the context of multiple psychosocial stressors including with his marriage. He expressed concerns about his cheating which may represent some paranoia versus reality-based and contributing to current stress of marriage. Diagnostically consistent with mixed episode of BPAD with decreased sleep and irritability and impulsivity but also with depression, recent suicide attempt and ongoing fatigue and constricted affect with anxiety. 04/06/21: Less tense and irritable but remains depressed with flat affect. [place] level is 0.7mmol/L which is right in target range given no acute symptoms of ifeanyi. (1) Bipolar 1 disorder: 04/06/21: continue current medications. Li level 0.7 and reassuring. Will continue abilify for one more day at 2.5 mg qd and then plan to stop. 04/05/21: -Continue wellbutrin SR 100mg qd -continue [place] 300mg qAM & 600mg qhs with level tomorrow morning -continue clonazepam 0.5 mg BID for mixed episode -consolidate lamictal 125 mg qhs, decrease abilify 2.5 mg qAM - continue olanzapine 10 mg qhs 04/04/21: The patient was admitted to the [facility] ([facility] unit) on q15 min checks (behavioral with suicide precautions) for safety. The patient will participate in group, recreational, and milieu therapies and will be offered additional individual and family sessions as clinically appropriate. Risks/benefits/alternatives were reviewed re: antipsychotics for mood and/or psychosis. Discussion included but was not limited to metabolic side effects, risks of TD and suicidal thoughts. There were no abnormal motor movements at baseline. Fasting glucose and lipid panel were reviewed from earlier this month. Patient is also aware of risk of rash with Lamictal. He denies being on a higher dose of Wellbutrin but will focus on targetting irritability and paranoia first with increase in Zyprexa to 10 mg as planned by outpatient psychiatrist. Will hold on lithium level as he missed at least 1 dose. Pharmacy expressed concerns about lisinopril increasing risk of lithium toxicity. He has no evidence of toxicity on exam. Ordering Lithobid here so gets tabs and not caps. Risk Factors Assessment Do You Have Access To A Gun?: No Protective Factors Assessment Employed: Yes ([employer]) Interval History Identifying Information 50 yo man with a history of BPAD, a recent suicide attempt via hanging and two prior inpatient psychiatric hospitalizations (last in 2011) who was admitted on 201 status for mood changes including irritability and recent suicide attempt in the context of multiple psychosocial stressors including with his marriage. Chief Complaint "I'm fine". Review of Systems Sleep Information Total Hours of Sleep: 6.5 Sleep Comments: pt on q-15 minute checks Meal Information Percent Meal Consumed - Breakfast: 100 Percent Meal Consumed - Lunch: 100 Percent Meal Consumed - Dinner: 100 Subjective Subjective Patient was seen & assessed and interval progress reviewed with treatment team nursing. Slightly improved sleep last night but still waking up early. Took a nap this afternoon. Continues to have depressed mood. Tolerating medication changes without any side effects. Physical Exam Psychiatric Orientation: alert and oriented x 3 Apperance: appropriately dressed and appropriately groomed Eye Contact: good eye contact Motor Behavior: steady gait and station and no abnormal motor movements; no psychomotor agitation Speech: normal rate/rhythm/volume of speech Affect: + flat affect Mood: + depressed mood Thought Process: goal directed thought process Thought Content: reality based without delusions Suicidal Thoughts: denies suicidal thoughts Homicidal Thoughts: denies homicidal thoughts Hallucinations: no auditory hallucinations and no visual hallucinations Cognition: recent memory grossly intact, remote memory grossly intact, attention grossly intact and language grossly intact Estimated Intelligence: consistent with education level Insight: + fair insight Judgement: + fair judgement Vital Signs (Past 24 Hours) Last Vital Signs Temp 36.6 C 04/06/21 06:46 Pulse 88 04/06/21 06:47 Resp 18 04/06/21 06:46 BP 102/67 04/06/21 06:47 Pulse Ox 98 04/04/21 00:58 Results & Data ([facility]) Laboratory Results Laboratory Results - last 24 hr 04/06/21 08:46 [place] 0.7 Current Inpatient Medications Current Inpatient Medications: Current Inpatient Medications Acetaminophen (Acetaminophen 325 Mg Tab) 650 mg PO Q4H PRN PRN Reason: Headache or Minor Fever Stop: 05/04/21 00:39 Al Hydrox/Mg Hydrox/Simethicone (Aluminum/Magnesium Susp 30 Ml Udc) 30 ml PO Q4H PRN PRN Reason: GI Upset Stop: 05/04/21 00:39 Aripiprazole (Aripiprazole 5 Mg Tab) 2.5 mg PO QAM [facility] Stop: 05/06/21 08:59 Last Admin: 04/06/21 09:16 Dose: 2.5 mg Documented by: Bismuth Subsalicylate (Bismuth Subsalicylate Liqd 236 Ml) 15 ml PO PRN PRN PRN Reason: Loose Stool Stop: 05/04/21 00:39 Bupropion HCl (Bupropion Sr 100 Mg Tabcr) 100 mg PO DAILY [facility] Stop: 05/04/21 09:59 Last Admin: 04/06/21 09:18 Dose: 100 mg Documented by: Clonazepam (Clonazepam 0.5 Mg Tab) 0.5 mg PO [id number] [facility] Stop: 05/04/21 13:59 Last Admin: 04/06/21 14:09 Dose: 0.5 mg Documented by: Hydroxyzine HCl (Hydroxyzine Hcl 25 Mg Tab) 50 mg PO HSZ PRN PRN Reason: Insomnia Stop: 05/04/21 00:39 Last Admin: 04/04/21 00:56 Dose: 50 mg Documented by: Hydroxyzine HCl (Hydroxyzine Hcl 25 Mg Tab) 25 mg PO Q4H PRN PRN Reason: Anxiety Stop: 05/04/21 00:39 Lamotrigine (Lamotrigine 25 Mg Tab) 125 mg PO [facility] Stop: 05/06/21 20:59 Lisinopril (Lisinopril 10 Mg Tab) 10 mg PO DAILY [facility] Stop: 05/04/21 09:59 Last Admin: 04/06/21 09:18 Dose: 10 mg Documented by: [place] Carbonate ([place] Carbonate Slow Rel 300 Mg Tab) 600 mg PO [facility] Stop: 05/04/21 21:59 Last Admin: 04/05/21 21:41 Dose: 600 mg Documented by: [place] Carbonate ([place] Carbonate Slow Rel 300 Mg Tab) [facility] Stop: 05/04/21 09:59 Last Admin: 04/06/21 09:20 Dose: 300 mg Documented by: Magnesium Hydroxide (Magnesium Hydroxide Susp 30 Ml Udc) 30 ml PO DAILY PRN PRN Reason: Constipation Stop: 05/04/21 00:39 Olanzapine (Olanzapine 10 Mg Tab) 10 mg PO [facility] Stop: 05/04/21 21:59 Last Admin: 04/05/21 21:41 Dose: 10 mg Documented by: Sodium Chloride (Sodium Chloride 0.65% Na Soln 45 Ml ([place])) 1 - 2 sprays NA PRN PRN PRN Reason: Nasal Dryness/Congestion Stop: 05/04/21 00:39 Mental Health & Subst Abuse Tx Psychiatrist Name of Psychiatrist: Eder Mendez Psychiatrist's Date of Appointment with Psychiatrist: 04/16/21 Time of Appointment with Psychiatrist: 7:00 AM Therapist Name of Therapist: Karissa Miller Therapist's Date of Therapist Appointment: 04/12/21 Time of Therapist Appointment: 6:00 PM Therapy Appointment Comment: virtual Business Excellence Leader Name of Business Excellence Leader: None Post Discharge Appointments Primary Care Physician Name Of Family Doctor: Dr. Fernando Deal Primary Care Provider Appointment Comment: Follow up as needed.
[2021-04-06] MEDS: OLANZapine 10 MG TAB PO SCH (21:06)
[2021-04-06] MEDS: lamoTRIgine 25 MG TAB PO SCH (21:06)
[2021-04-06] MEDS: hydrOXYzine HCl 25 MG TAB PO PRN (22:07)
[2021-04-07] MEDS: clonazePAM 0.5 MG TAB PO SCH ×2 (06:37→13:46)
[2021-04-07] MEDS: ARIPiprazole 5 MG TAB PO SCH (07:46)
[2021-04-07] MEDS: buPROPion SR 100 MG TABCR PO SCH (07:48)
[2021-04-07] MEDS: lisinopril 10 MG TAB PO SCH (07:50)
[2021-04-07] MEDS: lamoTRIgine 25 MG TAB PO SCH (07:50)
[2021-04-07] MEDS: LITHIUM CARBONATE SLOW REL 300 MG TAB PO SCH ×2 (07:51→21:18)
--- NOTE | 2021-04-07 14:26 | Psychiatric Progress Note ---
Date of Service April 07, 2021 Impression / Recommendations Impression 50 yo man with a history of BPAD, a recent suicide attempt via hanging and two prior inpatient psychiatric hospitalizations (last in 2011) who was admitted on 201 status for mood changes including irritability and recent suicide attempt in the context of multiple psychosocial stressors including with his marriage. He expressed concerns about his cheating which may represent some paranoia versus reality-based and contributing to current stress of marriage. Diagnostically consistent with mixed episode of BPAD with decreased sleep and irritability and impulsivity but also with depression, recent suicide attempt and ongoing fatigue and constricted affect with anxiety. 04/07/21: Significant worsening of mood in context of family meeting and deciding she will be and moving out of state. He remains at very high acute risk for self-harm in setting of this break-up, recent suicide attempt and ongoing tearful and flat affect and withdrawn behavior. (1) Bipolar 1 disorder: 04/07/21: discontinue abilify. Increase Wellbutrin XL to 150mg starting tomorrow. Continue lamictal, olanzapine, clonazepam and lithium. 04/06/21: continue current medications. Li level 0.7 and reassuring. Will continue abilify for one more day at 2.5 mg qd and then plan to stop. 04/05/21: -Continue wellbutrin SR 100mg qd -continue [place] 300mg qAM & 600mg qhs with level tomorrow morning -continue clonazepam 0.5 mg BID for mixed episode -consolidate lamictal 125 mg qhs, decrease abilify 2.5 mg qAM - continue olanzapine 10 mg qhs 04/04/21: The patient was admitted to the [facility] ([facility] mental health unit) on q15 min checks (behavioral with suicide precautions) for safety. The patient will participate in group, recreational, and milieu therapies and will be offered additional individual and family sessions as clinically appropriate. Risks/benefits/alternatives were reviewed re: antipsychotics for mood and/or psychosis. Discussion included but was not limited to metabolic side effects, risks of TD and suicidal thoughts. There were no abnormal motor movements at baseline. Fasting glucose and lipid panel were reviewed from earlier this month. Patient is also aware of risk of rash with Lamictal. He denies being on a higher dose of Wellbutrin but will focus on targetting irritability and paranoia first with increase in Zyprexa to 10 mg as planned by outpatient psychiatrist. Will hold on lithium level as he missed at least 1 dose. Pharmacy expressed concerns about lisinopril increasing risk of lithium toxicity. He has no ev idence of toxicity on exam. Ordering Lithobid here so gets tabs and not caps. Risk Factors Assessment Do You Have Access To A Gun?: No Protective Factors Assessment Employed: Yes ([employer]) Interval History Identifying Information 50 yo man with a history of BPAD, a recent suicide attempt via hanging and two prior inpatient psychiatric hospitalizations (last in 2011) who was admitted on 201 status for mood changes including irritability and recent suicide attempt in the context of multiple psychosocial stressors including with his marriage. Chief Complaint "Yeah it was difficult". Review of Systems Sleep Information Total Hours of Sleep: 6 Sleep Comments: pt on q-15 minute checks Meal Information Percent Meal Consumed - Breakfast: 100 Percent Meal Consumed - Lunch: 100 Percent Meal Consumed - Dinner: 50 Subjective Subjective Patient was seen & assessed and interval progress reviewed with treatment team nursing and social work. He remains flat and withdrawn and tearful at times. This morning had family meeting during which his shared that she plans to separate and move with their child out of state. This was understandably very difficult and upsetting for him. He responded well to support from staff and has been distracting himself by watching a favorite TV show. He denies any medication side effects and remains agreeable with plan to stop abilify and increase Wellbutrin. Had difficulty sleeping last night due to anxiety about family meeting today. Denies SI. Physical Exam Psychiatric Orientation: alert and oriented x 3 Apperance: appropriately dressed and appropriately groomed Eye Contact: good eye contact Motor Behavior: steady gait and station and no abnormal motor movements; no psychomotor agitation Speech: normal rate/rhythm/volume of speech Affect: + depressed affect Mood: + depressed mood Thought Process: goal directed thought process Thought Content: reality based without delusions Suicidal Thoughts: denies suicidal thoughts Homicidal Thoughts: denies homicidal thoughts Hallucinations: no auditory hallucinations and no visual hallucinations Cognition: recent memory grossly intact, remote memory grossly intact, attention grossly intact and language grossly intact Estimated Intelligence: consistent with education level Insight: + fair insight Judgement: + fair judgement Vital Signs (Past 24 Hours) Last Vital Signs Temp 36.9 C 04/06/21 20:00 Pulse 78 04/07/21 06:33 Resp 16 04/07/21 06:00 BP 121/84 04/07/21 06:33 Pulse Ox 98 04/04/21 00:58 Results & Data ([facility]) Current Inpatient Medications Current Inpatient Medications: Current Inpatient Medications Acetaminophen (Acetaminophen 325 Mg Tab) 650 mg PO Q4H PRN PRN Reason: Headache or Minor Fever Stop: 05/04/21 00:39 Al Hydrox/Mg Hydrox/Simethicone (Aluminum/Magnesium Susp 30 Ml Udc) 30 ml PO Q4H PRN PRN Reason: GI Upset Stop: 05/04/21 00:39 Aripiprazole (Aripiprazole 5 Mg Tab) 2.5 mg PO QAM [facility] Stop: 05/06/21 08:59 Last Admin: 04/07/21 07:46 Dose: 2.5 mg Documented by: Bismuth Subsalicylate (Bismuth Subsalicylate Liqd 236 Ml) 15 ml PO PRN PRN PRN Reason: Loose Stool Stop: 05/04/21 00:39 Bupropion HCl (Bupropion Sr 100 Mg Tabcr) 100 mg PO DAILY [facility] Stop: 05/04/21 09:59 Last Admin: 04/07/21 07:48 Dose: 100 mg Documented by: Clonazepam (Clonazepam 0.5 Mg Tab) 0.5 mg PO [id number] [facility] Stop: 05/04/21 13:59 Last Admin: 04/07/21 13:46 Dose: 0.5 mg Documented by: Hydroxyzine HCl (Hydroxyzine Hcl 25 Mg Tab) 50 mg PO HSZ PRN PRN Reason: Insomnia Stop: 05/04/21 00:39 Last Admin: 04/06/21 22:07 Dose: 50 mg Documented by: Hydroxyzine HCl (Hydroxyzine Hcl 25 Mg Tab) 25 mg PO Q4H PRN PRN Reason: Anxiety Stop: 05/04/21 00:39 Lamotrigine (Lamotrigine 25 Mg Tab) 125 mg PO QAM [facility] Stop: 05/06/21 20:59 Last Admin: 04/07/21 07:50 Dose: 125 mg Documented by: Lisinopril (Lisinopril 10 Mg Tab) 10 mg PO DAILY [facility] Stop: 05/04/21 09:59 Last Admin: 04/07/21 07:50 Dose: 10 mg Documented by: [place] Carbonate ([place] Carbonate Slow Rel 300 Mg Tab) 600 mg PO HS [facility] Stop: 05/04/21 21:59 Last Admin: 04/06/21 21:06 Dose: 600 mg Documented by: [place] Carbonate ([place] Carbonate Slow Rel 300 Mg Tab) 300 mg PO QAM [facility] Stop: 05/04/21 09:59 Last Admin: 04/07/21 07:51 Dose: 300 mg Documented by: Magnesium Hydroxide (Magnesium Hydroxide Susp 30 Ml Udc) 30 ml PO DAILY PRN PRN Reason: Constipation Stop: 05/04/21 00:39 Olanzapine (Olanzapine 10 Mg Tab) 10 mg PO HS [facility] Stop: 05/04/21 21:59 Last Admin: 04/06/21 21:06 Dose: 10 mg Documented by: Sodium Chloride (Sodium Chloride 0.65% Na Soln 45 Ml ([place])) 1 - 2 sprays NA PRN PRN PRN Reason: Nasal Dryness/Congestion Stop: 05/04/21 00:39 Mental Health & Subst Abuse Tx Psychiatrist Name of Psychiatrist: Eder Mendez Psychiatrist's Date of Appointment with Psychiatrist: 04/16/21 Time of Appointment with Psychiatrist: 7:00 AM Therapist Name of Therapist: Karissa Miller Therapist's Date of Therapist Appointment: 04/12/21 Time of Therapist Appointment: 6:00 PM Therapy Appointment Comment: virtual Faculty Instructor Name of Faculty Instructor: None Post Discharge Appointments Primary Care Physician Name Of Family Doctor: Dr. Fernando Deal Primary Care Provider Appointment Comment: Follow up as needed.
[2021-04-07] MEDS: hydrOXYzine HCl 25 MG TAB PO PRN ×2 (15:40→19:23)
[2021-04-07] MEDS: OLANZapine 10 MG TAB PO SCH (21:18)
[2021-04-08] MEDS: hydrOXYzine HCl 25 MG TAB PO PRN (05:34)
[2021-04-08] MEDS: clonazePAM 0.5 MG TAB PO SCH ×2 (06:43→14:02)
[2021-04-08] MEDS: lisinopril 10 MG TAB PO SCH (09:16)
[2021-04-08] MEDS: lamoTRIgine 25 MG TAB PO SCH (09:16)
[2021-04-08] MEDS: LITHIUM CARBONATE SLOW REL 300 MG TAB PO SCH ×2 (09:16→21:25)
[2021-04-08] MEDS: buPROPion XL 150 MG TABCR PO SCH (09:16)
--- NOTE | 2021-04-08 14:07 | Psychiatric Progress Note ---
Date of Service April 08, 2021 Impression / Recommendations Impression 50 yo man with a history of BPAD, a recent suicide attempt via hanging and two prior inpatient psychiatric hospitalizations (last in 2011) who was admitted on 201 status for mood changes including irritability and recent suicide attempt in the context of multiple psychosocial stressors including with his marriage. He expressed concerns about his cheating which may represent some paranoia versus reality-based and contributing to current stress of marriage. Diagnostically consistent with mixed episode of BPAD with decreased sleep and irritability and impulsivity but also with depression, recent suicide attempt and ongoing fatigue and constricted affect with anxiety. 04/08/21: Significant worsening of mood in context of family meeting and deciding she will be and moving out of state, he remains very depressed, anxious and tearful. He remains at very high acute risk for self- harm in setting of this break-up, recent suicide attempt and ongoing tearful and depressed affect and withdrawn behavior. He's tolerating the increase of Wellbutrin without any side effects. (1) Bipolar 1 disorder: 04/08/21: Increased Wellbutrin XL to 150mg qd. Continue lamictal, olanzapine, clonazepam and lithium and atarax prn. 04/07/21: discontinue abilify. Increase Wellbutrin XL to 150mg starting tomorrow. Continue lamictal, olanzapine, clonazepam and lithium. 04/06/21: continue current medications. Li level 0.7 and reassuring. Will continue abilify for one more day at 2.5 mg qd and then plan to stop. 04/05/21: -Continue wellbutrin SR 100mg qd -continue [place] 300mg qAM & 600mg qhs with level tomorrow morning -continue clonazepam 0.5 mg BID for mixed episode -consolidate lamictal 125 mg qhs, decrease abilify 2.5 mg qAM - continue olanzapine 10 mg qhs 04/04/21: The patient was admitted to the [facility] ([facility]) on q15 min checks (behavioral with suicide precautions) for safety. The patient will participate in group, recreational, and milieu therapies and will be offered additional individual and family sessions as clinically appropriate. Risks/benefits/alternatives were reviewed re: antipsychotics for mood and/or psychosis. Discussion included but was not limited to metabolic side effects, risks of TD and suicidal thoughts. There were no abnormal motor movements at baseline. Fasting glucose and lipid panel were reviewed from earlier this month. Patient is also aware of risk of rash with Lamictal. He denies being on a higher dose of Wellbutrin but will focus on targetting irritability and paranoia first with increase in Zyprexa to 10 mg as planned by outpatient psychiatrist. Will hold on lithium level as he missed at least 1 dose. Pharmacy expressed concerns about lisinopril increasing risk of lithium toxicity. He has no evidence of toxicity on exam. Ordering Lithobid here so gets tabs and not caps. Risk Factors Assessment Do You Have Access To A Gun?: No Protective Factors Assessment Employed: Yes ([employer]) Interval History Identifying Information 50 yo man with a history of BPAD, a recent suicide attempt via hanging and two prior inpatient psychiatric hospitalizations (last in 2011) who was admitted on 201 status for mood changes including irritability and recent suicide attempt in the context of multiple psychosocial stressors including with his marriage. Chief Complaint "I don't want them to move". Review of Systems Sleep Information Total Hours of Sleep: 7 Sleep Comments: pt on q-15 minute checks Meal Information Percent Meal Consumed - Breakfast: 100 Percent Meal Consumed - Lunch: 100 Percent Meal Consumed - Dinner: 100 Subjective Subjective Patient was seen & assessed and interval progress reviewed with treatment team nursing and social work. Art's mood has been very depressed and tearful after family meeting with his yesterday and news that she plans to separate and move with their child to [place]. He required additional prn doses of atarax last night for his anxiety related to this. Today he reports ongoing depression and is tearful in discussing the pain of the news of the separation and her plan to move. He denies current SI and is trying to cope by using distraction and expressing his emotions which was encouraged. Continues to feel hopeless and helpless. Physical Exam Psychiatric Orientation: alert and oriented x 3 Apperance: appropriately dressed and appropriately groomed Eye Contact: + fair eye contact Motor Behavior: steady gait and station and no abnormal motor movements Speech: normal rate/rhythm/volume of speech Affect: + depressed affect and + tearful affect Mood: + depressed mood and + anxious mood Thought Process: goal directed thought process Thought Content: reality based without delusions Suicidal Thoughts: denies suicidal thoughts Homicidal Thoughts: denies homicidal thoughts Hallucinations: no auditory hallucinations and no visual hallucinations Cognition: recent memory grossly intact, remote memory grossly intact, attention grossly intact and language grossly intact Estimated Intelligence: consistent with education level Insight: + fair insight Judgement: + fair judgement Vital Signs (Past 24 Hours) Last Vital Signs Temp 36.4 C L 04/08/21 06:00 Pulse 67 04/08/21 06:42 Resp 16 04/08/21 06:00 BP 110/74 04/08/21 06:42 Pulse Ox 98 04/04/21 00:58 Results & Data ([facility]) Current Inpatient Medications Current Inpatient Medications: Current Inpatient Medications Acetaminophen (Acetaminophen 325 Mg Tab) 650 mg PO Q4H PRN PRN Reason: Headache or Minor Fever Stop: 05/04/21 00:39 Al Hydrox/Mg Hydrox/Simethicone (Aluminum/Magnesium Susp 30 Ml Udc) 30 ml PO Q4H PRN PRN Reason: GI Upset Stop: 05/04/21 00:39 Bismuth Subsalicylate (Bismuth Subsalicylate Liqd 236 Ml) 15 ml PO PRN PRN PRN Reason: Loose Stool Stop: 05/04/21 00:39 Bupropion HCl (Bupropion Xl 150 Mg Tabcr) 150 mg PO QAM [facility] Stop: 05/08/21 08:59 Last Admin: 04/08/21 09:16 Dose: 150 mg Documented by: Clonazepam (Clonazepam 0.5 Mg Tab) 0.5 mg PO [id number] [facility] Stop: 05/04/21 13:59 Last Admin: 04/08/21 06:43 Dose: 0.5 mg Documented by: Hydroxyzine HCl (Hydroxyzine Hcl 25 Mg Tab) 50 mg PO HSZ PRN PRN Reason: Insomnia Stop: 05/04/21 00:39 Last Admin: 04/07/21 19:23 Dose: 50 mg Documented by: Hydroxyzine HCl (Hydroxyzine Hcl 25 Mg Tab) 25 mg PO Q4H PRN PRN Reason: Anxiety Stop: 05/04/21 00:39 Last Admin: 04/08/21 05:34 Dose: 25 mg Documented by: Lamotrigine (Lamotrigine 25 Mg Tab) 125 mg PO QAM [facility] Stop: 05/06/21 20:59 Last Admin: 04/08/21 09:16 Dose: 125 mg Documented by: Lisinopril (Lisinopril 10 Mg Tab) 10 mg PO DAILY [facility] Stop: 05/04/21 09:59 Last Admin: 04/08/21 09:16 Dose: 10 mg Documented by: [place] Carbonate ([place] Carbonate Slow Rel 300 Mg Tab) 600 mg PO HS [facility] Stop: 05/04/21 21:59 Last Admin: 04/07/21 21:18 Dose: 600 mg Documented by: [place] Carbonate ([place] Carbonate Slow Rel 300 Mg Tab) 300 mg PO QAM [facility] Stop: 05/04/21 09:59 Last Admin: 04/08/21 09:16 Dose: 300 mg Documented by: Magnesium Hydroxide (Magnesium Hydroxide Susp 30 Ml Udc) 30 ml PO DAILY PRN PRN Reason: Constipation Stop: 05/04/21 00:39 Olanzapine (Olanzapine 10 Mg Tab) 10 mg PO HS [facility] Stop: 05/04/21 21:59 Last Admin: 04/07/21 21:18 Dose: 10 mg Documented by: Sodium Chloride (Sodium Chloride 0.65% Na Soln 45 Ml ([place])) 1 - 2 sprays NA PRN PRN PRN Reason: Nasal Dryness/Congestion Stop: 05/04/21 00:39 Mental Health & Subst Abuse Tx Psychiatrist Name of Psychiatrist: Eder Mendez Psychiatrist's Date of Appointment with Psychiatrist: 04/16/21 Time of Appointment with Psychiatrist: 7:00 AM Therapist Name of Therapist: Karissa Miller Therapist's Date of Therapist Appointment: 04/12/21 Time of Therapist Appointment: 6:00 PM Therapy Appointment Comment: virtual Database Architect Name of Database Architect: None Post Discharge Appointments Primary Care Physician Name Of Family Doctor: Dr. Fernando Deal Primary Care Provider Appointment Comment: Follow up as needed.
[2021-04-08] MEDS: OLANZapine 10 MG TAB PO SCH (21:25)
[2021-04-09] MEDS: clonazePAM 0.5 MG TAB PO SCH ×2 (06:31→14:06)
[2021-04-09] MEDS: buPROPion XL 150 MG TABCR PO SCH (08:06)
[2021-04-09] MEDS: lamoTRIgine 25 MG TAB PO SCH (08:07)
[2021-04-09] MEDS: lisinopril 10 MG TAB PO SCH (08:08)
[2021-04-09] MEDS: LITHIUM CARBONATE SLOW REL 300 MG TAB PO SCH ×2 (08:09→20:55)
--- NOTE | 2021-04-09 12:53 | Psychiatric Progress Note ---
Date of Service April 09, 2021 Impression / Recommendations Impression 50 yo man with a history of BPAD, a recent suicide attempt via hanging and two prior inpatient psychiatric hospitalizations (last in 2011) who was admitted on 201 status for mood changes including irritability and recent suicide attempt in the context of multiple psychosocial stressors including with his marriage. He expressed concerns about his cheating which may represent some paranoia versus reality-based and contributing to current stress of marriage. Diagnostically consistent with mixed episode of BPAD with decreased sleep and irritability and impulsivity but also with depression, recent suicide attempt and ongoing fatigue and constricted affect with anxiety. 04/09/21: Worsening of mood in context of family meeting and deciding she will be and moving out of state, he remains very depressed, anxious and tearful. He remains at very high acute risk for self-harm in setting of this break-up, recent suicide attempt and ongoing tearful and depressed affect and withdrawn behavior. He's tolerating the increase of Wellbutrin without any side effects. He is starting to show future-oriented thoughts about ways to increase support including more frequent therapy sessions and possibly having his mom visit for some time. (1) Bipolar 1 disorder: 04/09/21: Continue current medications. Working on safety plan. Exploring options for increased support through more frequent therapy sessions and other community resources. 04/08/21: Increased Wellbutrin XL to 150mg qd. Continue lamictal, olanzapine, clonazepam and lithium and atarax prn. 04/07/21: discontinue abilify. Increase Wellbutrin XL to 150mg starting tomorrow. Continue lamictal, olanzapine, clonazepam and lithium. 04/06/21: continue current medications. Li level 0.7 and reassuring. Will continue abilify for one more day at 2.5 mg qd and then plan to stop. 04/05/21: -Continue wellbutrin SR 100mg qd -continue [place] 300mg qAM & 600mg qhs with level tomorrow morning -continue clonazepam 0.5 mg BID for mixed episode -consolidate lamictal 125 mg qhs, decrease abilify 2.5 mg qAM - continue olanzapine 10 mg qhs 04/04/21: The patient was admitted to the [facility] ([facility] mental health unit) on q15 min checks (behavioral with suicide precautions) for safety. The patient will participate in group, recreational, and milieu therapies and will be offered additional individual and family sessions as clinically appropriate. Risks/benefits/alternatives were reviewed re: antipsychotics for mood and/or psychosis. Discussion included but was not limited to metabolic side effects, risks of TD and suicidal thoughts. There were no abnormal motor movements at baseline. Fasting glucose and lipid panel were reviewed from earlier this month. Patient is also aware of risk of rash with Lamictal. He denies being on a higher dose of Wellbutrin but will focus on targetting irritability and paranoia first with increase in Zyprexa to 10 mg as planned by outpatient psychiatrist. Will hold on lithium level as he missed at least 1 dose. Pharmacy expressed concerns about lisinopril increasing risk of lithium toxicity. He has no evidence of toxicity on exam. Ordering Lithobid here so gets tabs and not caps. Risk Factors Assessment Do You Have Access To A Gun?: No Protective Factors Assessment Employed: Yes ([employer]) Interval History Identifying Information 50 yo man with a history of BPAD, a recent suicide attempt via hanging and two prior inpatient psychiatric hospitalizations (last in 2011) who was admitted on 201 status for mood changes including irritability and recent suicide attempt in the context of multiple psychosocial stressors including with his marriage. Chief Complaint "It's going to be so lonely without her". Review of Systems Sleep Information Total Hours of Sleep: 7 Sleep Comments: pt on q-15 minute checks Meal Information Percent Meal Consumed - Breakfast: 100 Percent Meal Consumed - Lunch: 100 Percent Meal Consumed - Dinner: 100 Subjective Subjective Patient was seen & assessed and interval progress reviewed with treatment team nursing and social work. Art worked on his safety plan and continues to process the emotions and changes with his 's decision to separate and move out of state. He remains very tearful at times and expresses hopelessness that he will ever meet someone else and worthlessness that anyone would ever love him again. Processed the role of depression in this and cognitive distortions. He is motivated to increase outpatient therapy and is considering having his mom stay with him to provide extra support once his moves out of state. Physical Exam Psychiatric Orientation: alert and oriented x 3 Apperance: appropriately dressed and appropriately groomed Eye Contact: + fair eye contact Motor Behavior: steady gait and station and no abnormal motor movements Speech: normal rate/rhythm/volume of speech Affect: + depressed affect and + tearful affect Mood: + depressed mood and + anxious mood Thought Process: goal directed thought process Thought Content: reality based without delusions Suicidal Thoughts: denies suicidal thoughts Homicidal Thoughts: denies homicidal thoughts Hallucinations: no auditory hallucinations and no visual hallucinations Cognition: recent memory grossly intact, remote memory grossly intact, attention grossly intact and language grossly intact Estimated Intelligence: consistent with education level Insight: + fair insight Judgement: + fair judgement Vital Signs (Past 24 Hours) Last Vital Signs Temp 36.6 C 04/09/21 06:00 Pulse 67 04/09/21 06:48 Resp 16 04/09/21 06:00 BP 130/79 04/09/21 06:48 Pulse Ox 98 04/04/21 00:58 Results & Data ([facility]) Current Inpatient Medications Current Inpatient Medications: Current Inpatient Medications Acetaminophen (Acetaminophen 325 Mg Tab) 650 mg PO Q4H PRN PRN Reason: Headache or Minor Fever Stop: 05/04/21 00:39 Al Hydrox/Mg Hydrox/Simethicone (Aluminum/Magnesium Susp 30 Ml Udc) 30 ml PO Q4H PRN PRN Reason: GI Upset Stop: 05/04/21 00:39 Bismuth Subsalicylate (Bismuth Subsalicylate Liqd 236 Ml) 15 ml PO PRN PRN PRN Reason: Loose Stool Stop: 05/04/21 00:39 Bupropion HCl (Bupropion Xl 150 Mg Tabcr) 150 mg PO QAM [facility] Stop: 05/08/21 08:59 Last Admin: 04/09/21 08:06 Dose: 150 mg Documented by: Clonazepam (Clonazepam 0.5 Mg Tab) 0.5 mg PO [id number] [facility] Stop: 05/04/21 13:59 Last Admin: 04/09/21 06:31 Dose: 0.5 mg Documented by: Hydroxyzine HCl (Hydroxyzine Hcl 25 Mg Tab) 50 mg PO HSZ PRN PRN Reason: Insomnia Stop: 05/04/21 00:39 Last Admin: 04/07/21 19:23 Dose: 50 mg Documented by: Hydroxyzine HCl (Hydroxyzine Hcl 25 Mg Tab) 25 mg PO Q4H PRN PRN Reason: Anxiety Stop: 05/04/21 00:39 Last Admin: 04/08/21 05:34 Dose: 25 mg Documented by: Lamotrigine (Lamotrigine 25 Mg Tab) 125 mg PO QAM [facility] Stop: 05/06/21 20:59 Last Admin: 04/09/21 08:07 Dose: 125 mg Documented by: Lisinopril (Lisinopril 10 Mg Tab) 10 mg PO DAILY [facility] Stop: 05/04/21 09:59 Last Admin: 04/09/21 08:08 Dose: 10 mg Documented by: Enon Carbonate (Enon Carbonate Slow Rel 300 Mg Tab) 600 mg PO [facility] Stop: 05/04/21 21:59 Last Admin: 04/08/21 21:25 Dose: 600 mg Documented by: Enon Carbonate (Enon Carbonate Slow Rel 300 Mg Tab) 300 mg PO QAM [facility] Stop: 05/04/21 09:59 Last Admin: 04/09/21 08:09 Dose: 300 mg Documented by: Magnesium Hydroxide (Magnesium Hydroxide Susp 30 Ml Udc) 30 ml PO DAILY PRN PRN Reason: Constipation Stop: 05/04/21 00:39 Olanzapine (Olanzapine 10 Mg Tab) 10 mg PO [facility] Stop: 05/04/21 21:59 Last Admin: 04/08/21 21:25 Dose: 10 mg Documented by: Sodium Chloride (Sodium Chloride 0.65% Na Soln 45 Ml ([place])) 1 - 2 sprays NA PRN PRN PRN Reason: Nasal Dryness/Congestion Stop: 05/04/21 00:39 Mental Health & Subst Abuse Tx Psychiatrist Name of Psychiatrist: Eder Mendez Psychiatrist's Date of Appointment with Psychiatrist: 04/16/21 Time of Appointment with Psychiatrist: 7:00 AM Therapist Name of Therapist: Karissa Miller Therapist's Date of Therapist Appointment: 04/12/21 Time of Therapist Appointment: 6:00 PM Therapy Appointment Comment: virtual Toll Bridge Operator Name of Toll Bridge Operator: None Post Discharge Appointments Primary Care Physician Name Of Family Doctor: Dr. Fernando Deal Primary Care Provider Appointment Comment: Follow up as needed.
[2021-04-09] MEDS: OLANZapine 10 MG TAB PO SCH (20:55)
[2021-04-10] MEDS: clonazePAM 0.5 MG TAB PO SCH ×2 (06:31→14:15)
[2021-04-10] MEDS: lisinopril 10 MG TAB PO SCH (08:05)
[2021-04-10] MEDS: buPROPion XL 150 MG TABCR PO SCH (08:05)
[2021-04-10] MEDS: LITHIUM CARBONATE SLOW REL 300 MG TAB PO SCH ×2 (08:05→20:46)
[2021-04-10] MEDS: lamoTRIgine 25 MG TAB PO SCH (08:06)
--- NOTE | 2021-04-10 08:39 | Psychiatric Progress Note ---
Date of Service April 10, 2021 Impression / Recommendations Impression 50 yo man with a history of BPAD, a recent suicide attempt via hanging and two prior inpatient psychiatric hospitalizations (last in 2011) who was admitted on 201 status for mood changes including irritability and recent suicide attempt in the context of multiple psychosocial stressors including with his marriage. He expressed concerns about his cheating which may represent some paranoia versus reality-based and contributing to current stress of marriage. Diagnostically consistent with mixed episode of BPAD with decreased sleep and irritability and impulsivity but also with depression, recent suicide attempt and ongoing fatigue and constricted affect with anxiety. 04/10/21: His affect is brightening and he's been consistently denying SI and is more future-oriented about plans after his separation and is looking forward to returning to work. He is glad his therapist will be able to see him twice weekly. He's tolerating the increase of Wellbutrin without any side effects. (1) Bipolar 1 disorder: 04/10/21: Continue current medications. Will have twice weekly therapy and his mom will stay with him after discharge. Continuing to coping skills and c hallenging cognitive distortions. 04/09/21: Continue current medications. Working on safety plan. Exploring options for increased support through more frequent therapy sessions and other community resources. 04/08/21: Increased Wellbutrin XL to 150mg qd. Continue lamictal, olanzapine, clonazepam and lithium and atarax prn. 04/07/21: discontinue abilify. Increase Wellbutrin XL to 150mg starting tomorrow. Continue lamictal, olanzapine, clonazepam and lithium. 04/06/21: continue current medications. Li level 0.7 and reassuring. Will continue abilify for one more day at 2.5 mg qd and then plan to stop. 04/05/21: -Continue wellbutrin SR 100mg qd -continue [facility] 300mg qAM & 600mg qhs with level tomorrow morning -continue clonazepam 0.5 mg BID for mixed episode -consolidate lamictal 125 mg qhs, decrease abilify 2.5 mg qAM - continue olanzapine 10 mg qhs 04/04/21: The patient was admitted to the [facility] ([facility] mental health unit) on q15 min checks (behavioral with suicide precautions) for safety. The patient will participate in group, recreational, and milieu therapies and will be offered additional individual and family sessions as clinically appropriate. Risks/benefits/alternatives were reviewed re: antipsychotics for mood and/or psychosis. Discussion included but was not limited to metabolic side effects, risks of TD and suicidal thoughts. There were no abnormal motor movements at baseline. Fasting glucose and lipid panel were reviewed from earlier this month. Patient is also aware of risk of rash with Lamictal. He denies being on a higher dose of Wellbutrin but will focus on targetting irritability and paranoia first with increase in Zyprexa to 10 mg as planned by outpatient psychiatrist. Will hold on lithium level as he missed at least 1 dose. Pharmacy expressed concerns about lisinopril increasing risk of lithium toxicity. He has no evidence of toxicity on exam. Ordering Lithobid here so gets tabs and not caps. Risk Factors Assessment Do You Have Access To A Gun?: No Protective Factors Assessment Employed: Yes ([employer]) Interval History Identifying Information 50 yo man with a history of BPAD, a recent suicide attempt via hanging and two prior inpatient psychiatric hospitalizations (last in 2011) who was admitted on 201 status for mood changes including irritability and recent suicide attempt in the context of multiple psychosocial stressors including with his marriage. Chief Complaint "I'm alright". Review of Systems Sleep Information Total Hours of Sleep: 8 Sleep Comments: pt on q-15 minute checks Meal Information Percent Meal Consumed - Breakfast: 100 Percent Meal Consumed - Lunch: 100 Percent Meal Consumed - Dinner: 100 Subjective Subjective Patient was seen & assessed and interval progress reviewed with treatment team nursing and social work. His mom is willing to come stay with him after he leaves the hospital and his therapist has agreed to see him twice weekly. He reports stable mood today and no SI. No medication side effects. He hasn't noticed any benefit yet from the higher dose of Wellbutrin. He discussed the things he plans to do after he returns home such as needing to move his stuff into a storage unit and then finding an apartment since he and his will sell their house as part of their separation. Physical Exam Psychiatric Orientation: alert and oriented x 3 Apperance: appropriately dressed and appropriately groomed Eye Contact: good eye contact Motor Behavior: steady gait and station and no abnormal motor movements Speech: normal rate/rhythm/volume of speech Affect: + depressed affect (slightly brighter today and no tearfulness) Mood: + depressed mood Thought Process: goal directed thought process Thought Content: reality based without delusions Suicidal Thoughts: denies suicidal thoughts Homicidal Thoughts: denies homicidal thoughts Hallucinations: no auditory hallucinations and no visual hallucinations Cognition: recent memory grossly intact, remote memory grossly intact, attention grossly intact and language grossly intact Estimated Intelligence: consistent with education level Insight: + fair insight Judgement: + fair judgement Vital Signs (Past 24 Hours) Last Vital Signs Temp 36.5 C 04/10/21 06:21 Pulse 60 04/10/21 06:21 Resp 16 04/10/21 06:21 BP 109/75 04/10/21 06:21 Pulse Ox 98 04/04/21 00:58 Results & Data ([facility]) Current Inpatient Medications Current Inpatient Medications: Current Inpatient Medications Acetaminophen (Acetaminophen 325 Mg Tab) 650 mg PO Q4H PRN PRN Reason: Headache or Minor Fever Stop: 05/04/21 00:39 Al Hydrox/Mg Hydrox/Simethicone (Aluminum/Magnesium Susp 30 Ml Udc) 30 ml PO Q4H PRN PRN Reason: GI Upset Stop: 05/04/21 00:39 Bismuth Subsalicylate (Bismuth Subsalicylate Liqd 236 Ml) 15 ml PO PRN PRN PRN Reason: Loose Stool Stop: 05/04/21 00:39 Bupropion HCl (Bupropion Xl 150 Mg Tabcr) 150 mg PO QAM [facility] Stop: 05/08/21 08:59 Last Admin: 04/10/21 08:05 Dose: 150 mg Documented by: Clonazepam (Clonazepam 0.5 Mg Tab) 0.5 mg PO [id number] [facility] Stop: 05/04/21 13:59 Last Admin: 04/10/21 06:31 Dose: 0.5 mg Documented by: Hydroxyzine HCl (Hydroxyzine Hcl 25 Mg Tab) 50 mg PO HSZ PRN PRN Reason: Insomnia Stop: 05/04/21 00:39 Last Admin: 04/07/21 19:23 Dose: 50 mg Documented by: Hydroxyzine HCl (Hydroxyzine Hcl 25 Mg Tab) 25 mg PO Q4H PRN PRN Reason: Anxiety Stop: 05/04/21 00:39 Last Admin: 04/08/21 05:34 Dose: 25 mg Documented by: Lamotrigine (Lamotrigine 25 Mg Tab) 125 mg PO QAM [facility] Stop: 05/06/21 20:59 Last Admin: 04/10/21 08:06 Dose: 125 mg Documented by: Lisinopril (Lisinopril 10 Mg Tab) 10 mg PO DAILY [facility] Stop: 05/04/21 09:59 Last Admin: 04/10/21 08:05 Dose: 10 mg Documented by: [facility] Carbonate ([facility] Carbonate Slow Rel 300 Mg Tab) 600 mg PO HS [facility] Stop: 05/04/21 21:59 Last Admin: 04/09/21 20:55 Dose: 600 mg Documented by: [facility] Carbonate ([facility] Carbonate Slow Rel 300 Mg Tab) 300 mg PO QAM [facility] Stop: 05/04/21 09:59 Last Admin: 04/10/21 08:05 Dose: 300 mg Documented by: Magnesium Hydroxide (Magnesium Hydroxide Susp 30 Ml Udc) 30 ml PO DAILY PRN PRN Reason: Constipation Stop: 05/04/21 00:39 Olanzapine (Olanzapine 10 Mg Tab) 10 mg PO HS [facility] Stop: 05/04/21 21:59 Last Admin: 04/09/21 20:55 Dose: 10 mg Documented by: Sodium Chloride (Sodium Chloride 0.65% Na Soln 45 Ml ([place])) 1 - 2 sprays NA PRN PRN PRN Reason: Nasal Dryness/Congestion Stop: 05/04/21 00:39 Mental Health & Subst Abuse Tx Psychiatrist Name of Psychiatrist: Eder Mendez Psychiatrist's Date of Appointment with Psychiatrist: 04/16/21 Time of Appointment with Psychiatrist: 7:00 AM Therapist Name of Therapist: Karissa Miller Therapist's Date of Therapist Appointment: 04/12/21 Time of Therapist Appointment: 6:00 PM Therapy Appointment Comment: virtual Shipping Receiving Clerk Name of Shipping Receiving Clerk: None Post Discharge Appointments Primary Care Physician Name Of Family Doctor: Dr. Fernando Deal Primary Care Provider Appointment Comment: Follow up as needed.
[2021-04-10] MEDS: OLANZapine 10 MG TAB PO SCH (20:47)
[2021-04-11] MEDS: clonazePAM 0.5 MG TAB PO SCH ×2 (06:36→13:32)
[2021-04-11 08:02] LABS: MDA negative; MDEA negative; MDMA (Ecstasy) Urine, Confirm negative
[2021-04-11] MEDS: lisinopril 10 MG TAB PO SCH (08:02)
[2021-04-11] MEDS: lamoTRIgine 25 MG TAB PO SCH (08:02)
[2021-04-11] MEDS: buPROPion XL 150 MG TABCR PO SCH (08:02)
[2021-04-11] MEDS: LITHIUM CARBONATE SLOW REL 300 MG TAB PO SCH ×2 (08:03→21:11)
--- NOTE | 2021-04-11 12:58 | Psychiatric Progress Note ---
Date of Service April 11, 2021 Impression / Recommendations Impression 50 yo man with a history of BPAD, a recent suicide attempt via hanging and two prior inpatient psychiatric hospitalizations (last in 2011) who was admitted on 201 status for mood changes including irritability and recent suicide attempt in the context of multiple psychosocial stressors including with his marriage. He expressed concerns about his cheating which may represent some paranoia versus reality-based and contributing to current stress of marriage. Diagnostically consistent with mixed episode of BPAD with decreased sleep and irritability and impulsivity but also with depression, recent suicide attempt and ongoing fatigue and constricted affect with anxiety. 04/11/21: Continuing to consistently deny SI with improvement in affect and is future-oriented about plans after his separation and is looking forward to returning to work. Also able to show good insight into some of the challenges that will occur with navigating the separation and divorce and settling into a new routine at home without his and child. He is glad his therapist will be able to see him twice weekly. He's tolerating all of his medications. (1) Bipolar 1 disorder: 04/11/21: Continue current medications. Completed safety plan and reviewed it with multiple staff. Continuing to work on coping skills to help him process and grieve his separation. 04/10/21: Continue current medications. Will have twice weekly therapy and his mom will stay with him after discharge. Continuing to coping skills and challenging cognitive distortions. 04/09/21: Continue current medications. Working on safety plan. Exploring options for increased support through more frequent therapy sessions and other community resources. 04/08/21: Increased Wellbutrin XL to 150mg qd. Continue lamictal, olanzapine, clonazepam and lithium and atarax prn. 04/07/21: discontinue abilify. Increase Wellbutrin XL to 150mg starting tomorrow. Continue lamictal, olanzapine, clonazepam and lithium. 04/06/21: continue current medications. Li level 0.7 and reassuring. Will continue abilify for one more day at 2.5 mg qd and then plan to stop. 04/05/21: -Continue wellbutrin SR 100mg qd -continue Maurice 300mg qAM & 600mg qhs with level tomorrow morning -continue clonazepam 0.5 mg BID for mixed episode -consolidate lamictal 125 mg qhs, decrease abilify 2.5 mg qAM - continue olanzapine 10 mg qhs 04/04/21: The patient was admitted to the [facility] on q15 min checks (behavioral with suicide precautions) for safety. The patient will participate in group, recreational, and milieu therapies and will be offered additional individual and family sessions as clinically appropriate. Risks/benefits/alternatives were reviewed re: antipsychotics for mood and/or psychosis. Discussion included but was not limited to metabolic side effects, risks of TD and suicidal thoughts. There were no abnormal motor movements at baseline. Fasting glucose and lipid panel were reviewed from earlier this month. Patient is also aware of risk of rash with Lamictal. He denies being on a higher dose of Wellbutrin but will focus on targetting irritability and paranoia first with increase in Zyprexa to 10 mg as planned by outpatient psychiatrist. Will hold on lithium level as he missed at least 1 dose. Pharmacy expressed concerns about lisinopril increasing risk of lithium toxicity. He has no evidence of toxicity on exam. Ordering Lithobid here so gets tabs and not caps. Risk Factors Assessment Do You Have Access To A Gun?: No Protective Factors Assessment Employed: Yes ([employer]) Interval History Identifying Information 50 yo man with a history of BPAD, a recent suicide attempt via hanging and two prior inpatient psychiatric hospitalizations (last in 2011) who was admitted on 201 status for mood changes including irritability and recent suicide attempt in the context of multiple psychosocial stressors including with his marriage. Chief Complaint "My mood varied today". Review of Systems Sleep Information Total Hours of Sleep: 8 Sleep Comments: pt on q-15 minute checks Meal Information Percent Meal Consumed - Breakfast: 100 Percent Meal Consumed - Lunch: 100 Percent Meal Consumed - Dinner: 100 Subjective Subjective Patient was seen & assessed and interval progress reviewed with treatment team nursing and social work. Art continues to consistently deny SI and is future- oriented about increasing therapy sessions, having his mom stay with him for awhile and returning to work but he also notes he has periods of lower mood when he feels sad and grieves the loss of his relationship with his . He agrees that the infidelity was leading to an unhealthy relationship dynamic but that he also recognizes it is going to take time to adapting to being alone again. He is glad his mom will be with him to provide support and so he doesn't feel lonely. Discussed ways he can use distraction when he's home to cope as well as using his safety plan and having it easily accessible. He continues to feel that he can be safe at home and we discuss that should things be more challenging then he anticipates or should his mood worsen he can always return for inpatient treatment which he agrees he would do. He remains hopeful this won't be needed b ut states he would come back to the hospital if his mood worsened or he felt unsafe. He had some grogginess this morning but no other medication side effects and he feels good about his current medications and dosages. Physical Exam Psychiatric Orientation: alert and oriented x 3 Apperance: appropriately dressed and appropriately groomed Eye Contact: good eye contact Motor Behavior: steady gait and station and no abnormal motor movements Speech: normal rate/rhythm/volume of speech Affect: euthymic affect (when discussing things he's looking forward to) and + tearful affect (when discussing divorce & what it will be like to not have his at home) Mood: + anxious mood Thought Process: goal directed thought process Thought Content: reality based without delusions Suicidal Thoughts: denies suicidal thoughts Homicidal Thoughts: denies homicidal thoughts Hallucinations: no auditory hallucinations and no visual hallucinations Cognition: recent memory grossly intact, remote memory grossly intact, attention grossly intact and language grossly intact Estimated Intelligence: consistent with education level Insight: + fair insight Judgement: + fair judgement Vital Signs (Past 24 Hours) Last Vital Signs Temp 36.8 C 04/11/21 06:26 Pulse 58 L 04/11/21 06:26 Resp 16 04/11/21 06:26 BP 103/66 04/11/21 06:26 Pulse Ox 98 04/04/21 00:58 Results & Data ([facility]) Laboratory Results Laboratory Results - last 24 hr 04/03/21 18:30 Urine MDEA negative MDMA negative Urine MDMA negative Current Inpatient Medications Current Inpatient Medications: Current Inpatient Medications Acetaminophen (Acetaminophen 325 Mg Tab) 650 mg PO Q4H PRN PRN Reason: Headache or Minor Fever Stop: 05/04/21 00:39 Al Hydrox/Mg Hydrox/Simethicone (Aluminum/Magnesium Susp 30 Ml Udc) 30 ml PO Q4H PRN PRN Reason: GI Upset Stop: 05/04/21 00:39 Bismuth Subsalicylate (Bismuth Subsalicylate Liqd 236 Ml) 15 ml PO PRN PRN PRN Reason: Loose Stool Stop: 05/04/21 00:39 Bupropion HCl (Bupropion Xl 150 Mg Tabcr) 150 mg PO QAM [facility] Stop: 05/08/21 08:59 Last Admin: 04/11/21 08:02 Dose: 150 mg Documented by: Clonazepam (Clonazepam 0.5 Mg Tab) 0.5 mg PO [id number] [facility] Stop: 05/04/21 13:59 Last Admin: 04/11/21 06:36 Dose: 0.5 mg Documented by: Hydroxyzine HCl (Hydroxyzine Hcl 25 Mg Tab) 50 mg PO HSZ PRN PRN Reason: Insomnia Stop: 05/04/21 00:39 Last Admin: 04/07/21 19:23 Dose: 50 mg Documented by: Hydroxyzine HCl (Hydroxyzine Hcl 25 Mg Tab) 25 mg PO Q4H PRN PRN Reason: Anxiety Stop: 05/04/21 00:39 Last Admin: 04/08/21 05:34 Dose: 25 mg Documented by: Lamotrigine (Lamotrigine 25 Mg Tab) 125 mg PO QAM [facility] Stop: 05/06/21 20:59 Last Admin: 04/11/21 08:02 Dose: 125 mg Documented by: Lisinopril (Lisinopril 10 Mg Tab) 10 mg PO DAILY [facility] Stop: 05/04/21 09:59 Last Admin: 04/11/21 08:02 Dose: 10 mg Documented by: Maurice Carbonate (Maurice Carbonate Slow Rel 300 Mg Tab) 600 mg PO HS [facility] Stop: 05/04/21 21:59 Last Admin: 04/10/21 20:46 Dose: 600 mg Documented by: Maurice Carbonate (Maurice Carbonate Slow Rel 300 Mg Tab) 300 mg PO QAM [facility] Stop: 05/04/21 09:59 Last Admin: 04/11/21 08:03 Dose: 300 mg Documented by: Magnesium Hydroxide (Magnesium Hydroxide Susp 30 Ml Udc) 30 ml PO DAILY PRN PRN Reason: Constipation Stop: 05/04/21 00:39 Olanzapine (Olanzapine 10 Mg Tab) 10 mg PO HS [facility] Stop: 05/04/21 21:59 Last Admin: 04/10/21 20:47 Dose: 10 mg Documented by: Sodium Chloride (Sodium Chloride 0.65% Na Soln 45 Ml ([place])) 1 - 2 sprays NA PRN PRN PRN Reason: Nasal Dryness/Congestion Stop: 05/04/21 00:39 Mental Health & Subst Abuse Tx Psychiatrist Name of Psychiatrist: Eder Mendez Psychiatrist's Date of Appointment with Psychiatrist: 04/16/21 Time of Appointment with Psychiatrist: 7:00 AM Therapist Name of Therapist: Karissa Miller Therapist's Date of Therapist Appointment: 04/12/21 Time of Therapist Appointment: 6:00 PM Therapy Appointment Comment: virtual Survey Technologist Name of Survey Technologist: None Post Discharge Appointments Primary Care Physician Name Of Family Doctor: Dr. Fernando Deal Primary Care Provider Appointment Comment: Follow up as needed.
[2021-04-11] MEDS: OLANZapine 10 MG TAB PO SCH (21:11)
[2021-04-12] MEDS: clonazePAM 0.5 MG TAB PO SCH ×2 (06:35→12:33)
[2021-04-12] MEDS: LITHIUM CARBONATE SLOW REL 300 MG TAB PO SCH (09:20)
[2021-04-12] MEDS: lisinopril 10 MG TAB PO SCH (09:20)
[2021-04-12] MEDS: lamoTRIgine 25 MG TAB PO SCH (09:21)
[2021-04-12] MEDS: buPROPion XL 150 MG TABCR PO SCH (09:21)
--- NOTE | 2021-04-12 09:49 | Discharge Summary ---
Date of Service April 12, 2021 History of Present Illness The patient reports marital distress for the past few months, culminated in him attempting suicide by hanging 3 weeks ago. There have been mixed reports whether this was a gesture of upset for 's cheating vs. intent to . It was significant enough attempt that he became light headed and aborted the attempt. He did process with his psychiatrist and was referred to start therapy. He is unsure of recent medication changes other than Zyprexa was increased at yesterday's appointment to 10 mg and he hadn't picked that up at the pharmacy yet. He is currently on holiday break from his work at [employer] [address] and states that his and child are visiting her family out of state. He was triggered yesterday as she reportedly asked him not to come for Carlene and encouraged hospitalization "because she's messing around" (angry tone). He states that he hasn't been eating or sleeping well. He denies that he was suicidal yesterday, "I'm more angry than anything" and states that he was agreeable to come as his psychiatrist recommended it. The patient denies increased goal directed activity, distractibility but endorses irritability. It's unclear how impulsive the prior attempt was. Dr. Mendez was contacted for coordination of care and to confirm medications and states that patient has been more irritable with paranoia, more of a manic or mixed presentation and all are concerned about his safety given recent attempt. Physical Exam Psychiatric See admission H&P and DOD summary. Vital Signs (Past 24 Hours) Last Vital Signs Temp 36.6 C 04/12/21 09:47 Pulse 77 04/12/21 09:47 Resp 16 04/12/21 09:47 BP 135/90 04/12/21 09:47 Pulse Ox 98 04/12/21 09:47 Principal Diagnosis bipolar disorder Psychiatric Data See daily stay summary. In short, safety was maintained and the patient was cooperative with care. Medication changes included increase in Wellbutrin and initiating the increase of Zyprexa to 10 mg as planned by his outpatient provider. They tolerated this well. A family session was held where he and his planned logistics of their separation and he is aware that she has removed items from the home. A safety plan was completed prior to discharge which incl uded his mother staying with him until he returns to work and discussed her overseeing his medication particularly given the toxicity of benzos and lithium in overdose. He discussed looking for an apartment and looks forward to speaking with his therapist later this afternoon. Day of Discharge Assessment Today the patient voices feeling anxious but ready for discharge as factors that can be mitigated have and it will take time to adjust to his living situation. They note improvement in mood from admission in that he's not as angry and his tearfulness is appropriate to the situation. He has consistently denied thoughts to harm self or others. Thoughts remain organized. There is no evidence of psychosis. They agree to take mediations as prescribed and keep follow-up appointments. They are stable for discharge to outpatient level of care. Transition of Care Transition Of Care Record: was reviewed with the patient Advance Directives Advance Directives Information Provided: Yes Advance Directives: No Mental Health Advance Directive: No Advance Directives on File: No Living Will: No Power of Cafe Cook: No Advance Directives Reason:: Declines as Mental Health Visit. Risk Factors Assessment Do You Have Access To A Gun?: No Protective Factors Assessment Employed: Yes ([employer] [facility] [address]) Tobacco Cessation at Discharge Tobacco Cessation Medication Prescribed at Discharge: Not Applicable/Non-Smoker Total Time Total Time Spent: Greater Than 30 Minutes Total Time Includes: Examination of the patient, Discharge Planning and Medication Reconciliation Discharge Data Consultations 04/04/21 00:19 ED Decision to Admit Stat Lab Results 04/03/21 04/03/21 04/03/21 18:30 18:30 18:30 WBC RBC Hgb Hct MCV MCH MCHC RDW Std Deviation RDW Coeff of Tavon Plt Count MPV Immature Gran % (Auto) Neut % (Auto) Lymph % (Auto) [place] % (Auto) Eos % (Auto) Baso % (Auto) Neut # (Auto) Lymph # (Auto) [place] # (Auto) Eos # (Auto) Baso # (Auto) Immature Gran # (Auto) Sodium Potassium Chloride Carbon Dioxide Anion Gap BUN Creatinine Est Cr Clr Drug Dosing Est GFR ( Amer) Est GFR (Non-Af Amer) BUN/Creatinine Ratio Glucose Calcium Total Bilirubin AST ALT Alkaline Phosphatase Total Protein Albumin Globulin Albumin/Globulin Ratio TSH Urine Color Yellow Urine Appearance Clear Urine pH 5.5 Ur Specific [place] 1.008 Urine Protein Negative Urine Glucose (UA) Negative Urine Ketones Negative Urine Blood Negative Urine Nitrite Negative Urine Bilirubin Negative Urine Urobilinogen Negative Ur Leukocyte Esterase Trace H Urine WBC (Auto) 1-5 Urine RBC (Auto) 0-4 U Hyaline Cast (Auto) 1-5 U Epithel Cells (Auto) 0-5 Urine Bacteria (Auto) Negative Salicylates Urine Opiates Screen Neg Ur Methadone, Qual Neg Acetaminophen Urine Barbiturates Neg Ur Phencyclidine (PCP) Neg U Amphetamin/Meth Scrn Neg Urine MDEA negative MDMA (Ecstasy) Screen Pos H MDMA negative Urine MDMA negative U Benzodiazepines Scrn Neg [place] Ur Cocaine Metabolite Neg U Marijuana (THC) Screen Neg Ethyl Alcohol mg/dL SARS-CoV-2, RNA, NAAT 04/03/21 04/03/21 04/03/21 18:52 18:52 18:52 WBC 13.44 H RBC 4.67 L Hgb 14.5 Hct 42.5 MCV 91.0 MCH 31.0 MCHC 34.1 RDW Std Deviation 42.5 RDW Coeff of [place] 12.8 Plt Count 311 MPV 9.0 Immature Gran % (Auto) 0.1 Neut % (Auto) 71.8 Lymph % (Auto) 20.4 [place] % (Auto) 5.7 Eos % (Auto) 1.6 Baso % (Auto) 0.4 Neut # (Auto) 9.66 H Lymph # (Auto) 2.74 [place] # (Auto) 0.76 H Eos # (Auto) 0.21 Baso # (Auto) 0.05 Immature Gran # (Auto) 0.02 Sodium 137 Potassium 3.6 Chloride 107 Carbon Dioxide 23 Anion Gap 7.0 BUN 11 Creatinine 1.04 Est Cr Clr Drug Dosing Not Reportable Est GFR ( Amer) 96.6 Est GFR (Non-Af Amer) 83.3 BUN/Creatinine Ratio 10.8 Glucose 90 Calcium 9.8 Total Bilirubin 0.7 AST 16 ALT 28 Alkaline Phosphatase 67 Total Protein 7.6 Albumin 4.1 Globulin 3.5 Albumin/Globulin Ratio 1.2 TSH 3.330 Urine Color Urine Appearance Urine pH Ur Specific [place] Urine Protein Urine Glucose (UA) Urine Ketones Urine Blood Urine Nitrite Urine Bilirubin Urine Urobilinogen Ur Leukocyte Esterase Urine WBC (Auto) Urine RBC (Auto) U Hyaline Cast (Auto) U Epithel Cells (Auto) Urine Bacteria (Auto) Salicylates 2.5 L Urine Opiates Screen Ur Methadone, Qual Acetaminophen 4 L Urine Barbiturates Ur Phencyclidine (PCP) U Amphetamin/Meth Scrn Urine MDEA MDMA (Ecstasy) Screen MDMA Urine MDMA U Benzodiazepines Scrn [place] Ur Cocaine Metabolite U Marijuana (THC) Screen Ethyl Alcohol mg/dL SARS-CoV-2, RNA, NAAT 04/03/21 04/03/21 04/06/21 18:52 22:15 08:46 WBC RBC Hgb Hct MCV MCH MCHC RDW Std Deviation RDW Coeff of [place] Plt Count MPV Immature Gran % (Auto) Neut % (Auto) Lymph % (Auto) [place] % (Auto) Eos % (Auto) Baso % (Auto) Neut # (Auto) Lymph # (Auto) [place] # (Auto) Eos # (Auto) Baso # (Auto) Immature Gran # (Auto) Sodium Potassium Chloride Carbon Dioxide Anion Gap BUN Creatinine Est Cr Clr Drug Dosing Est GFR ( Amer) Est GFR (Non-Af Amer) BUN/Creatinine Ratio Glucose Calcium Total Bilirubin AST ALT Alkaline Phosphatase Total Protein Albumin Globulin Albumin/Globulin Ratio TSH Urine Color Urine Appearance Urine pH Ur Specific [place] Urine Protein Urine Glucose (UA) Urine Ketones Urine Blood Urine Nitrite Urine Bilirubin Urine Urobilinogen Ur Leukocyte Esterase Urine WBC (Auto) Urine RBC (Auto) U Hyaline Cast (Auto) U Epithel Cells (Auto) Urine Bacteria (Auto) Salicylates Urine Opiates Screen Ur Methadone, Qual Acetaminophen Urine Barbiturates Ur Phencyclidine (PCP) U Amphetamin/Meth Scrn Urine MDEA MDMA (Ecstasy) Screen MDMA Urine MDMA U Benzodiazepines Scrn [place] 0.7 Ur Cocaine Metabolite U Marijuana (THC) Screen Ethyl Alcohol mg/dL < 3.0 SARS-CoV-2, RNA, NAAT NEGATIVE Hospital Course (1) Bipolar 1 disorder: 04/11/21: Continue current medications. Completed safety plan and reviewed it with multiple staff. Continuing to work on coping skills to help him process and grieve his separation. 04/10/21: Continue current medications. Will have twice weekly therapy and his mom will stay with him after discharge. Continuing to coping skills and challenging cognitive distortions. 04/09/21: Continue current medications. Working on safety plan. Exploring options for increased support through more frequent therapy sessions and other community resources. 04/08/21: Increased Wellbutrin XL to 150mg qd. Continue lamictal, olanzapine, clonazepam and lithium and atarax prn. 04/07/21: discontinue abilify. Increase Wellbutrin XL to 150mg starting tomorrow. Continue lamictal, olanzapine, clonazepam and lithium. 04/06/21: continue current medications. Li level 0.7 and reassuring. Will continue abilify for one more day at 2.5 mg qd and then plan to stop. 04/05/21: -Continue wellbutrin SR 100mg qd -continue [place] 300mg qAM & 600mg qhs with level tomorrow morning -continue clonazepam 0.5 mg BID for mixed episode -consolidate lamictal 125 mg qhs, decrease abilify 2.5 mg qAM - continue olanzapine 10 mg qhs 04/04/21: The patient was admitted to the [facility] mental [facility] unit) on q15 min checks (behavioral with suicide precautions) for safety. The patient will participate in group, recreational, and milieu therapies and will be offered additional individual and family sessions as clinically appropriate. Risks/benefits/alternatives were reviewed re: antipsychotics for mood and/or psychosis. Discussion included but was not limited to metabolic side effects, risks of TD and suicidal thoughts. There were no abnormal motor movements at baseline. Fasting glucose and lipid panel were reviewed from earlier this month. Patient is also aware of risk of rash with Lamictal. He denies being on a higher dose of Wellbutrin but will focus on targetting irritability and paranoia first with increase in Zyprexa to 10 mg as planned by outpatient psychiatrist. Will hold on lithium level as he missed at least 1 dose. Pharmacy expressed concerns about lisinopril increasing risk of lithium toxicity. He has no evidence of toxicity on exam. Ordering Lithobid here so gets tabs and not caps. Mental Health & Subst Abuse Tx Psychiatrist Name of Psychiatrist: Eder Aparicio - Dr. Mendez Psychiatrist's Date of Appointment with Psychiatrist: 04/16/21 Time of Appointment with Psychiatrist: 7:00 AM Therapist Name of Therapist: Karissa Miller Therapist's Date of Therapist Appointment: 04/12/21 Time of Therapist Appointment: 6:00 PM Therapy Appointment Comment: virtual Radiation Protection Specialist Name of Radiation Protection Specialist: None Case Management Appointment Comment: [facility]: , [address], [place], [address] Post Discharge Appointments Primary Care Physician Name Of Family Doctor: Dr. Fernando Deal Primary Care Provider Appointment Comment: Follow up as needed. Smoking Cessation Counseling Tobacco Cessation Medication Prescribed at Discharge: Not Applicable/Non-Smoker Contact Information Discharge Discharge [address]: [address] [place] [id number] Discharge Plan Discharge Items Patient Disposition: Home - Self-Care Reason For Visit: BIPOLAR D/O Discharge Diagnosis: bipolar disorder Activity: Resume your previous activity Non-emergency contact: Primary Care Provider, Psychiatrist and Therapist Call non-emergency contact if: you have any medication questions and your symptoms worsen Follow-up/Referrals: Fernando Deal, [Primary Care Provider] - Diet: Regular Addtl Attending Provider Instructions: SPECIAL CARE INSTRUCTIONS: 1. Follow through with your scheduled aftercare appointments. If unable to keep an appointment, please call to reschedule. 2. Take your medication only as prescribed. Medication should not be changed or stopped without the approval of your doctor. In the event of worsening symptoms or concerns about side effects, contact your doctor immediately. 3. Utilize new healthy coping skills, anger management skills, and stress management skills learned during your hospitalization. Journal feelings and process them with a support person. Identify stressors or situations that may result in relapse, deterioration or inappropriate behaviors and develop a plan to deal with those issues. 4. If your coping skills are ineffective and you are in crisis, contact your outpatient providers for direction. If unable to reach your providers, please call the [facility] CRISIS LINE AT , go to the [facility] walk-in center at [address], [place], or go to the closest Emergency Room. 5. Avoid alcohol and un-prescribed drugs. 6. You have been provided with the Mental Health Advance Directives Pamphlet for your review. 7. Your condition is stable for discharge to outpatient level of care, but recovery is an ongoing process. Ifthoughts to harm yourself or others return, follow the safety plan developed during your stay. Planning for a safe return home includes securing weapons. Our treatment team recommends weaponsbe removed from the home until your outpatient provider reassesses your progress. In rare cases where the items themselvescannot be removed, guns and ammunitionshould be secured separatelyand keys stored by a reliable personoutside of the home. If you were admitted on an involuntary commitment, the police or other legal authorities may be involved in this process. AFTERCARE APPOINTMENTS: * Please call your insurance company prior to your scheduled appointment to confirm your aftercare providers are covered. Take your insurance information to your appointments. WHO TO CALL AND WHEN: Medical Emergencies: For questions or emergencies related to your hospital stay, please contact the Inpatient Behavioral Health Unit at [phone]. A photocopy operator is on-call 03/11 for the Behavioral Health Unit for emergencies At any time you feel your situation is an emergency, you may also call 911 immediately. Pending Studies at Discharge: No Stand-Alone Forms: [facility] [employer], Smoking Cessation Medications and DC Order Prescriptions: New bupropion HCl 150 mg Tablet Extended Release 24 Hr 150 mg PO QAM 30 Days Qty: 30 RF: 0 hydroxyzine HCl 25 mg tablet 25 mg PO Q4 PRN (Reason: anxiety) Qty: 14 RF: 0 lamotrigine [Lamictal] 100 mg tablet 100 mg PO QAM Qty: 1 RF: 0 olanzapine [Zyprexa] 10 mg tablet 10 mg PO HS Qty: 30 RF: 0 Continued clonazepam 0.5 mg tablet 0.5 mg PO BID RF: 0 lisinopril 10 mg tablet 10 mg PO DAILY RF: 0 ergocalciferol (vitamin D2) 1,250 mcg (50,000 unit) capsule 50,000 unit PO WK RF: 0 lithium carbonate 300 mg tablet 300 mg PO DAILY RF: 0 lithium carbonate 300 mg Tablet 600 mg PO HS RF: 0 Changed lamotrigine 25 mg tablet 25 mg PO QAM Qty: 0 RF: 0 Discontinued olanzapine 10 mg tablet 10 mg PO DAILY RF: 0 bupropion HCl 100 mg tablet sustained-release 12 hr 100 mg PO DAILY RF: 0 lamotrigine 25 mg Tablet 100 mg PO HS RF: 0 aripiprazole 5 mg tablet 5 mg PO DAILY RF: 0 Discharge Orders: Discharge Order (Routine); Ordered 04/12/21 Ordered By: Merlyn Alcaraz Admission Data Admit Date/Time: 04/04/21 00:03 Attending Provider: Merlyn Alcaraz Admit Provider: Merlyn Alcaraz Primary Care Provider: Fernando Deal Other Providers: Merlyn Alcaraz Other Interventions: Discharge Summary Assessment (RN) Last Done: 04/12/21 09:47 PSY Interdisciplinary Discharge Planning Last Done: 04/12/21 10:06 Coding Level of Care Code 10931 D/C day mgmt > 30 min Diagnoses Bipolar 1 disorder F31.9
== END 2021-04-12 12:45 | disposition home or self-care (01) | DRG 885 ==
LOC: ED 18:07 → 3S 04-04 00:03 → SUATTDRO 04-04 00:03 → ED 04-04 00:25 → 3S 04-04 00:36